=== PATIENT | male | born 1955 | race Caucasian/White ===

== ENCOUNTER 2018-09-11 16:51 | Inpatient (IN) | payer MEDICARE, MEDICAID, SELFPAY ==
[2018-09-11] VITALS (74 sets, daily range): BP systolic 103–184; BP diastolic 53–124; PULSE 82–181; RESP 14–34; TEMP 36.3–37; O2SAT 91–98
--- NOTE | 2018-09-11 17:23 | DI.RAD_ITS ---
SYMPTOM/DIAGNOSIS: COUGH, FEVER FRONTAL AND LATERAL PROJECTION OF CHEST: There are emphysematous changes in the lungs. There is no evidence of an infiltrate or mass, or pleural effusion. The heart is not enlarged. The appearance of the hilar vasculature raises the possibility of pulmonary arterial hypertension. Note is also made of multiple healed right rib fractures. 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 Old healed left rib fractures are identified as well. SUMMARY: COPD, multiple old rib fractures. No acute abnormality seen.
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
[2018-09-11 17:53] LABS: Abs Immature Grans 0.01 k/cumm (0.0-0.09); Absolute Lymphocyte Count 1.35 k/cumm (1.2-3.4); Absolute Monocyte Count 0.75 k/cumm (0.11-0.7); Absolute Neutrophil Count 4.92 k/cumm (1.2-6.7); HCT 41.7 % (40.0-50.0); HGB 14.4 g/dL (13.5-17.5); Immature Grans % 0.1; Lymphocytes % 19.2; Mean Corp. HGB Concentration 34.5 g/dL (32.0-36.0); Mean Corpuscular Hemoglobin 28.6 pg (27.0-33.0); Mean Corpuscular Volume 82.9 fL (80-95); Mean Platelet Volume 10.2 fL (8.0-11.0); Monocytes % 10.7; Platelet Count 259 x1000/uL (130-400); RBC 5.03 m/cumm (4.50-6.00); RBC Distribution Width 13.5 % (11.8-14.1); White Blood Cell Count 7.03 k/cumm (4.4-10.8)
[2018-09-11] MEDS: Albuterol/Ipratropium 3 ML UPD VIAL UPD (17:54)
[2018-09-11] MEDS: Lactated Ringers 1,000 ML 1000 ML IV (17:54)
[2018-09-11 17:59] LABS: Lactate 2.4 mmol/L (0.6-1.4)
[2018-09-11 18:12] LABS: ALT 39 U/L (12-78); AST 171 U/L (15-37); Albumin 3.4 g/dL (3.4-5.0); Alkaline Phosphatase 94 U/L (46-116); Anion Gap 11.9 mmol/L (3-11); BUN 16 mg/dL (7-18); Bilirubin, Total 0.5 mg/dL (0.2-1.0); CO2 27.1 mmol/L (21.0-32.0); CREATININE 0.82 mg/dL (0.70-1.30); Calcium 8.3 mg/dL (8.5-10.1); Chloride 80 mmol/L (98-107); Glucose 190 mg/dL (70-100); Potassium 3.6 mmol/L (3.5-5.1); Total Protein 8.7 g/dL (6.4-8.2)
[2018-09-11 18:14] LABS: Sodium 119 mmol/L (136-145)
--- NOTE | 2018-09-11 18:25 | NUR.NOTE ---
Nursing Note: Pt awake, alert. HR tachy, EKG obtained. labs drawn. flu swab sent. LS coarse throughout. RR 20's-30. reports fevers at home, afebrile in ER. Off unit to XR at this time, will continue to monitor.
[2018-09-11] MEDS: Normal Saline 1,000 ML 150 ML IV (18:47)
[2018-09-11] MEDS: Oseltamivir 75 MG CAP PO (18:57)
--- NOTE | 2018-09-11 19:04 | DI.VRAD_ITS ---
EXAM: XR Chest, 2 Views EXAM DATE/TIME: 09/11/2018 5:25 PM CLINICAL HISTORY: 63 years old, male; Pain; Other: Cough fever TECHNIQUE: XR of the chest, 2 views. COMPARISON: No relevant prior studies available. FINDINGS: The cardiomediastinal silhouette and pulmonary vasculature are within normal limits. The lungs are clear. Lung volumes are increased consistent with COPD. IMPRESSION: COPD. Dictated and Authenticated by: Bala Arriaga MD. Ordering:LEONARDO Noble MD
[2018-09-11 19:33] LABS: Troponin I 0.67 ng/mL (0.00-0.06)
[2018-09-11] MEDS: Aspirin 81 MG CHEW 162 MG PO (20:06)
[2018-09-11] MEDS: methylPREDNISolone SUCC 125 MG VIAL IVP (20:06)
[2018-09-11 21:21] LABS: Troponin I 1.09 ng/mL (0.00-0.06)
[2018-09-11] MEDS: Clopidogrel 300 MG TAB PO (22:12)
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
[2018-09-12] VITALS (70 sets, daily range): BP systolic 84–148; BP diastolic 49–120; PULSE 56–161; RESP 4–30; TEMP 35.7–37; O2SAT 90–98
[2018-09-12] MEDS: Metoprolol 50 MG TAB PO ×4 (00:20→18:48)
[2018-09-12] MEDS: Oseltamivir 75 MG CAP PO ×3 (00:28→20:44)
[2018-09-12] MEDS: Normal Saline 1,000 ML 150 ML IV (00:44)
[2018-09-12 00:52] LABS: Troponin I 0.98 ng/mL (0.00-0.06)
[2018-09-12] MEDS: Acetaminophen 325 MG TAB PO (01:01)
[2018-09-12 02:55] LABS: PTT Activated 65.7 sec (21.0-31.4)
[2018-09-12] MEDS: Albuterol/Ipratropium 3 ML UPD VIAL UPD (07:20)
[2018-09-12 07:22] LABS: Absolute Lymphocyte Count 1.64 k/cumm (1.2-3.4); Absolute Monocyte Count 0.39 k/cumm (0.11-0.7); Absolute Neutrophil Count 4.24 k/cumm (1.2-6.7); HCT 39.1 % (40.0-50.0); HGB 13.6 g/dL (13.5-17.5); Lymphocytes % 26.2; Mean Corp. HGB Concentration 34.8 g/dL (32.0-36.0); Mean Corpuscular Hemoglobin 28.7 pg (27.0-33.0); Mean Corpuscular Volume 82.5 fL (80-95); Mean Platelet Volume 10.2 fL (8.0-11.0); Monocytes % 6.2; Neutrophils % 67.6; Platelet Count 232 x1000/uL (130-400); RBC 4.74 m/cumm (4.50-6.00); RBC Distribution Width 13.3 % (11.8-14.1); White Blood Cell Count 6.27 k/cumm (4.4-10.8)
[2018-09-12 07:34] LABS: ALT 36 U/L (12-78); AST 172 U/L (15-37); Albumin 2.8 g/dL (3.4-5.0); Alkaline Phosphatase 76 U/L (46-116); BUN 17 mg/dL (7-18); Bilirubin, Total 0.4 mg/dL (0.2-1.0); CREATININE 0.78 mg/dL (0.70-1.30); Calcium 7.5 mg/dL (8.5-10.1); Chloride 87 mmol/L (98-107); Glucose 199 mg/dL (70-100); Magnesium 1.2 mg/dL (1.8-2.4); Potassium 3.8 mmol/L (3.5-5.1); Total Protein 7.3 g/dL (6.4-8.2)
[2018-09-12 07:37] LABS: Sodium 124 mmol/L (136-145)
[2018-09-12 08:12] LABS: Cholesterol 96 mg/dL (50-200); HDL Cholesterol 38 mg/dL (40-60); LDL CHOLESTEROL 49 mg/dL (<100); Triglyceride 64 mg/dL (30-150)
[2018-09-12 08:25] LABS: Lactate-non-spesis 1.5 mmol/L (0.6-1.4)
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
[2018-09-12 08:48] LABS: PTT Activated 50.9 sec (21.0-31.4)
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
--- NOTE | 2018-09-12 09:00 | MERGE_ITS ---
*[facility]* *[facility]* [address] [place] [address] Date of study: 09/12/2018 Transthoracic Echocardiography M-mode, complete 2D, complete spectral Doppler, and color Doppler *STUDY CONCLUSIONS* Summary: 1. Left ventricle: The cavity size was normal. Systolic function was normal. The estimated ejection fraction was 55-60%. Diastolic parameters were normal for age. There was no evidence of elevated ventricular filling pressure by Doppler parameters. 2. Mitral valve: There was mild regurgitation. 3. Right ventricle: The cavity size was normal. Wall thickness was normal. Systolic function was normal. 4. Atrial septum: No defect or patent foramen ovale was identified. 5. Pulmonary arteries: Pulmonary systolic pressure was >= 15mm Hg. 6. Inferior vena cava: Poorly visualized. *PATIENT PRESENTATION* Height: 188cm ((74in) ) S/D Pressure: 128 / 68 Weight: 72.6kg ((159.7lb) ) BSA: 1.94m^2 Test start time: 09:10 AM. Test stop time: 10:10 AM. Manjinder Johnson Michael R PERFORMING [facility] CONSULTING Stephen Torres EDUCATION PROGRAM COORDINATOR RT Jose Raul (R)(CT), [facility] PERFORMING Md Kristyn George *PROCEDURE DATA* Procedure information: The patient was identified by two identifiers. This study was interpreted by [facility]. Pertinent images and digital data are archived for permanent storage and are available for subsequent review. No prior study was available for comparison. Study status: Routine. Transthoracic echocardiography. M-mode, complete 2D, complete spectral Doppler, and color Doppler. A Transthoracic Echocardiogram was performed. Scanning was performed from the parasternal, apical, subcostal, and suprasternal notch acoustic windows. Images were obtained using an [id number] cardiac ultrasound machine. Image quality was adequate. Study completion: The patient tolerated the procedure well. *CARDIAC ANATOMY* Left ventricle: The cavity size was normal. Systolic function was normal. The estimated ejection fraction was 55-60%. The tissue Doppler parameters were abnormal. Diastolic parameters were normal for age. There was no evidence of elevated ventricular filling pressure by Doppler parameters. Aortic valve: Trileaflet. Doppler: There was no stenosis. There was no regurgitation. VTI ratio of LVOT to aortic valve: 0.65. Valve area (VTI): 2.1cm^2. Indexed valve area (VTI): 1.1cm^2/m^2. Peak velocity ratio of LVOT to aortic valve: 0.62. Valve area (Vmax): 2cm^2. Indexed valve area (Vmax): 1cm^2/m^2. Mean velocity ratio of LVOT to aortic valve: 0.6. Valve area (Vmean): 1.9cm^2. Indexed valve area (Vmean): 1cm^2/m^2. Mean gradient (S): 1.3mm Hg. Peak gradient (S): 2.1mm Hg. Aorta: Aortic root: The aortic root was normal in size. Mitral valve: Doppler: There was no evidence for stenosis. There was mild regurgitation. Valve area by pressure half-time: 4cm^2. Indexed valve area by pressure half-time: 2cm^2/m^2. Left atrium: The atrium was normal in size. Atrial septum: No defect or patent foramen ovale was identified. Right ventricle: The cavity size was normal. Wall thickness was normal. Systolic function was normal. Pulmonic valve: Doppler: There was no evidence for stenosis. There was no significant regurgitation. Tricuspid valve: Doppler: There was mild regurgitation. Pulmonary artery: Poorly visualized. Pulmonary systolic pressure was >= 15mm Hg. Right atrium: The atrium was normal in size. Pericardium: There was no pericardial effusion. Systemic veins: Inferior vena cava: Poorly visualized. Baseline ECG: Normal sinus rhythm. Measurements Left ventricle Value Reference LV ID, ED, PLAX 4.2 cm 3.5 - 6.0 LV ID, ES, PLAX 3.2 cm 2.1 - 4.0 LV end-diastolic volume, 1-p A2C 60 ml LV ejection fraction, 1-p A2C 48 % LV end-diastolic volume, 1-p A4C 59 ml LV ejection fraction, 1-p A4C 57 % LV e', lateral 0.06 m/sec LV E/e', lateral 7 LV e', medial 0.064 m/sec LV E/e', medial 7 LV e', average 0.062 m/sec LV E/e', average 7 LVOT Value Reference LVOT ID, A-P 2.0 cm LVOT area 3.3 cm^2 LVOT peak velocity, S 0.45 m/sec LVOT mean velocity, S 0.33 m/sec LVOT VTI, S 10.4 cm LVOT peak gradient, S 0.8 mm Hg LVOT mean gradient, S 0.5 mm Hg Stroke volume (SV), LVOT DP 34 ml Stroke index (SV/bsa), LVOT DP 18 ml/m^2 Aortic valve Value Reference Aortic valve peak velocity, S 0.7 m/sec Aortic valve mean velocity, S 0.56 m/sec Aortic valve VTI, S 16.0 cm Aortic mean gradient, S 1.3 mm Hg Aortic peak gradient, S 2.1 mm Hg VTI ratio, LVOT/AV 0.65 Aortic valve area, VTI 2.1 cm^2 Velocity ratio, peak, LVOT/AV 0.62 Aortic valve area, peak velocity 2 cm^2 Velocity ratio, mean, LVOT/AV 0.6 Aortic valve area, mean velocity 1.9 cm^2 Aortic valve area/bsa, mean velocity 1 cm^2/m^2 Aorta Value Reference Aortic root ID, ED 3.0 cm Left atrium Value Reference LA ID, A-P, ES 3.7 cm LA ID/bsa, A-P 1.9 cm/m^2 <=2.2 LA area, ES, A4C 14.4 cm^2 8.8 - 23.4 LA volume/bsa, ES, 1-p A4C 20 ml/m^2 LA/aortic root ratio 1.23 Mitral valve Value Reference Mitral E-wave peak velocity 0.44 m/sec Mitral A-wave peak velocity 0.58 m/sec Mitral deceleration time 192 ms 150 - 230 Mitral pressure half-time 56 ms Mitral E/A ratio, peak 0.76 Mitral valve area, PHT, DP 4 cm^2 Tricuspid valve Value Reference Tricuspid regurg peak velocity 2 m/sec Tricuspid peak RV-RA gradient 15.5 mm Hg Right atrium Value Reference RA area, ES, A4C 16.4 cm^2 8.3 - 19.5 Legend: (L) and (H) sonja values outside specified reference range. I have personally reviewed the images and have reviewed and edited the reported findings. Electronically signed by Manjinder Rosas MD 09/12/2018 19:16
[2018-09-12] MEDS: Normal Saline Flush 10 ML SYR IVP (10:05)
[2018-09-12] MEDS: Clopidogrel 75 MG TAB PO (10:06)
[2018-09-12] MEDS: Thiamine 100 MG TAB PO (10:06)
[2018-09-12] MEDS: Aspirin 81 MG CHEW PO (10:07)
[2018-09-12] MEDS: Gabapentin 100 MG CAP 200 MG PO ×3 (10:33→20:44)
[2018-09-12] MEDS: Timolol 0.5% 5 ML BTL OP ×2 (10:34→22:42)
[2018-09-12 10:58] LABS: FREE T4 1.19 ng/dL (0.76-1.46); TSH 1.09 uIU/mL (0.358-3.74)
[2018-09-12] MEDS: MAGNESIUM SULFATE 4 GM/100 ML BAG IVPB (11:04)
[2018-09-12] MEDS: SODIUM CHLORIDE 0.45% 1,000 ML 75 ML IV (11:06)
[2018-09-12 12:25] LABS: Anion Gap 9.4 mmol/L (3-11); BUN 19 mg/dL (7-18); CO2 28.6 mmol/L (21.0-32.0); CREATININE 1.04 mg/dL (0.70-1.30); Calcium 7.8 mg/dL (8.5-10.1); Chloride 86 mmol/L (98-107); Glucose 192 mg/dL (70-100); Potassium 3.7 mmol/L (3.5-5.1)
[2018-09-12 12:27] LABS: Sodium 124 mmol/L (136-145)
[2018-09-12 13:07] LABS: Bilirubin Negative (Negative); Blood Moderate (Negative); Clarity Clear; Glucose Negative (Negative); Ketones Negative (Negative); Leukocyte Esterase Negative (Negative); Nitrite Negative (Negative); Urobilinogen 0.2 EU/dL (Up TO 0.2); pH 6.5 (5-8)
[2018-09-12 13:21] LABS: WBC 0-2 HPF (0-5)
[2018-09-12 13:22] LABS: Bacteria Rare HPF (Negative); C & S Indicated? No; Casts Negative LPF (Negative); Crystals Negative HPF (Negative); Epithelial Cells Negative HPF (Negative); Mucus Negative (Negative); Other Cells Negative (Negative)
--- NOTE | 2018-09-12 16:43 | W.PM.PROGNOT ---
Date of Service Date of service: 09/12/18 Time of Service: 12:00 Assessment and Plan (1) Elevated troponin: Current visit: Yes Status: Acute Ddx: NSTEMI, carditis due to influenza A infection. EKG with nonspecific ST changes, echo results will be available shortly. Troponin no longer rising. At this point, would continue heparin gtt due to the degree of elevated troponin and re-discuss with cardiology at [facility] [facility]. It is likely the patient will require a cardiac cath. (2) Acute coronary syndrome: Current visit: Yes Status: Acute as above (3) Rapid atrial fibrillation: Current visit: Yes Status: Resolved Resolved. Continue current dose of beta blockers. Diltiazem increased to 60 mg Q 8hrs. (4) Influenza A: Current visit: Yes Status: Acute Continue tamiflu (5) Tobacco abuse: Current visit: Yes Status: Chronic Counselled on quitting. (6) Encephalopathy chronic: Current visit: Yes Status: Chronic Wernicke's encephalopathy is suspected. Continue thiamine (7) Hyponatremia: Current visit: Yes Status: Acute Improving. Repeat BMP at 1800. On 09/18 NS as the sodium starting to go up faster than I would have liked. (8) Hypomagnesemia: Current visit: Yes Status: Acute Replete, monitor on tele. (9) Discharge planning issues: Current visit: Yes Status: Acute Transfer to [facility] expected - awaiting echocardiogram. Subjective Interval history since last seen: Denies dizziness, chest pain, shortness of breath, nasal congestion, sore throat, nausea, vomiting, palpitations. Has remained in NSR with occasional short runs of Sinus tach. Exam Narrative Exam Narrative: General: Middle aged male, confused, appears much older than his stated age HEENT: EOMI, MMM Heart: RRR, no m/r/g Lungs: quiet rhonchi bilaterally GI: abdomen soft, nontender, nondistended Extremities: no e/c/c BLE's Objective Objective Clinical Data: Abnormal lab results 09/11/18 09/11/18 09/11/18 Range/Units 17:30 17:30 17:30 Hct (40.0-50.0) % Absolute Monocytes 0.75 H (0.11-0.7) k/cumm APTT (21.0-31.4) sec Sodium 119 L* (136-145) mmol/L Chloride 80 L (98-107) mmol/L Anion Gap 11.9 H (3-11) mmol/L BUN (7-18) mg/dL Glucose 190 H (70-100) mg/dL Lactate 2.4 H* (0.6-1.4) mmol/L Calcium 8.3 L (8.5-10.1) mg/dL Magnesium (1.8-2.4) mg/dL AST 171 H (15-37) U/L Troponin I 0.67 H (0.00-0.06) ng/mL Total Protein 8.7 H (6.4-8.2) g/dL Albumin (3.4-5.0) g/dL HDL Cholesterol (40-60) mg/dL Urine Protein (Negative) mg/dL Urine Blood (Negative) Urine RBC (0-2) 09/11/18 09/12/18 09/12/18 Range/Units 20:48 00:30 02:33 Hct (40.0-50.0) % Absolute Monocytes (0.11-0.7) k/cumm APTT 65.7 H (21.0-31.4) sec Sodium (136-145) mmol/L Chloride (98-107) mmol/L Anion Gap (3-11) mmol/L BUN (7-18) mg/dL Glucose (70-100) mg/dL Lactate (0.6-1.4) mmol/L Calcium (8.5-10.1) mg/dL Magnesium (1.8-2.4) mg/dL AST (15-37) U/L Troponin I 1.09 H 0.98 H (0.00-0.06) ng/mL Total Protein (6.4-8.2) g/dL Albumin (3.4-5.0) g/dL HDL Cholesterol (40-60) mg/dL Urine Protein (Negative) mg/dL Urine Blood (Negative) Urine RBC (0-2) 09/12/18 09/12/18 09/12/18 Range/Units 06:45 06:45 08:15 Hct 39.1 L (40.0-50.0) % Absolute Monocytes (0.11-0.7) k/cumm APTT 50.9 H D (21.0-31.4) sec Sodium 124 L* (136-145) mmol/L Chloride 87 L (98-107) mmol/L Anion Gap 13.0 H (3-11) mmol/L BUN (7-18) mg/dL Glucose 199 H (70-100) mg/dL Lactate (0.6-1.4) mmol/L Calcium 7.5 L (8.5-10.1) mg/dL Magnesium 1.2 L (1.8-2.4) mg/dL AST 172 H (15-37) U/L Troponin I (0.00-0.06) ng/mL Total Protein (6.4-8.2) g/dL Albumin 2.8 L (3.4-5.0) g/dL HDL Cholesterol 38 L (40-60) mg/dL Urine Protein (Negative) mg/dL Urine Blood (Negative) Urine RBC (0-2) 09/12/18 09/12/18 09/12/18 Range/Units 08:15 11:58 12:05 Hct (40.0-50.0) % Absolute Monocytes (0.11-0.7) k/cumm APTT (21.0-31.4) sec Sodium 124 L* (136-145) mmol/L Chloride 86 L (98-107) mmol/L Anion Gap (3-11) mmol/L BUN 19 H (7-18) mg/dL Glucose 192 H (70-100) mg/dL Lactate 1.5 H (0.6-1.4) mmol/L Calcium 7.8 L (8.5-10.1) mg/dL Magnesium (1.8-2.4) mg/dL AST (15-37) U/L Troponin I (0.00-0.06) ng/mL Total Protein (6.4-8.2) g/dL Albumin (3.4-5.0) g/dL HDL Cholesterol (40-60) mg/dL Urine Protein 30 H (Negative) mg/dL Urine Blood Moderate H (Negative) Urine RBC 5-10 H (0-2) Vital Signs Temperature 36.5 C 09/12/18 12:05 Temperature Source Temporal Artery Scan 09/12/18 12:05 Pulse 89 09/12/18 13:04 Pulse 73 09/12/18 13:04 Respiratory Rate 22 09/12/18 13:04 Respiratory Effort Non-Labored 09/12/18 12:05 Respiratory Depth Normal 09/12/18 12:05 Respiratory Pattern Normal 09/12/18 12:05 Blood Pressure 114/52 L 09/12/18 13:04 Blood Pressure Mean 66 09/12/18 13:04 Pulse Oximetry 94 L 09/12/18 08:45 Oxygen Delivery Method Room Air 09/12/18 08:45 Oxygen Flow Rate 0 09/12/18 08:45 Pain Level 0 09/12/18 12:05 Intake & Output 09/11/18 09/12/18 09/12/18 23:59 11:59 23:59 Intake Total 1016.008 / 1516.008 500 / 1516.008 Output Total 1200 / 1300 675 / 775 100 / 775 Balance 810..25 341.008 / 741.008 400 / 741.008 Weight 72.575 kg 69.1 kg Intake: IV 266.008 / 766.008 500 / 766.008 Oral 750 / 750 Output: Urine 1200 / 1300 675 / 775 100 / 775 Other: Urine Color Light Darcy Light Darcy Urine Appearance Clear Clear Urine Odor Normal Normal Voiding Methods Urinal Urinal # Voids 2 Laboratory Results WBC 6.27 k/cumm (4.4-10.8) 09/12/18 06:45 RBC 4.74 m/cumm (4.50-6.00) 09/12/18 06:45 Hgb 13.6 g/dL (13.5-17.5) 09/12/18 06:45 Hct 39.1 % (40.0-50.0) L 09/12/18 06:45 MCV 82.5 fL (80-95) 09/12/18 06:45 MCH 28.7 pg (27.0-33.0) 09/12/18 06:45 MCHC 34.8 g/dL (32.0-36.0) 09/12/18 06:45 RDW 13.3 % (11.8-14.1) 09/12/18 06:45 Plt Count 232 x1000/uL (130-400) 09/12/18 06:45 MPV 10.2 fL (8.0-11.0) 09/12/18 06:45 Immature Gran % 0.0 09/12/18 06:45 Neutrophils % 67.6 09/12/18 06:45 Lymphocytes % 26.2 09/12/18 06:45 Monocytes % 6.2 09/12/18 06:45 Eosinophils % 0.0 09/12/18 06:45 Basophils % 0.0 09/12/18 06:45 Absolute Neutrophils 4.24 k/cumm (1.2-6.7) 09/12/18 06:45 Absolute Lymphocytes 1.64 k/cumm (1.2-3.4) 09/12/18 06:45 Absolute Monocytes 0.39 k/cumm (0.11-0.7) 09/12/18 06:45 Absolute Eosinophils 0.00 k/cumm (0.0-0.7) 09/12/18 06:45 Absolute Basophils 0.00 k/cumm (0.0-0.2) 09/12/18 06:45 APTT 50.9 sec (21.0-31.4) H D 09/12/18 08:15 Sodium 124 mmol/L (136-145) L* 09/12/18 12:05 Potassium 3.7 mmol/L (3.5-5.1) 09/12/18 12:05 Chloride 86 mmol/L (98-107) L 09/12/18 12:05 Carbon Dioxide 28.6 mmol/L (21.0-32.0) 09/12/18 12:05 Anion Gap 9.4 mmol/L (3-11) 09/12/18 12:05 BUN 19 mg/dL (7-18) H 09/12/18 12:05 Creatinine 1.04 mg/dL (0.70-1.30) 09/12/18 12:05 Estimated GFR/1.73 m2 >= 60.00 (mL/min/1.73m2) 09/12/18 12:05 Glucose 192 mg/dL (70-100) H 09/12/18 12:05 Lactate 1.5 mmol/L (0.6-1.4) H 09/12/18 08:15 Calcium 7.8 mg/dL (8.5-10.1) L 09/12/18 12:05 Magnesium 1.2 mg/dL (1.8-2.4) L 09/12/18 06:45 Total Bilirubin 0.4 mg/dL (0.2-1.0) 09/12/18 06:45 AST 172 U/L (15-37) H 09/12/18 06:45 ALT 36 U/L (12-78) 09/12/18 06:45 Alkaline Phosphatase 76 U/L (46-116) 09/12/18 06:45 Troponin I 0.98 ng/mL (0.00-0.06) H 09/12/18 00:30 Total Protein 7.3 g/dL (6.4-8.2) 09/12/18 06:45 Albumin 2.8 g/dL (3.4-5.0) L 09/12/18 06:45 Triglycerides 64 mg/dL (30-150) 09/12/18 06:45 Total Cholesterol 96 mg/dL (50-200) 09/12/18 06:45 LDL Cholesterol Direct 49 mg/dL (<100) 09/12/18 06:45 HDL Cholesterol 38 mg/dL (40-60) L 09/12/18 06:45 TSH 1.09 uIU/mL (0.358-3.74) 09/12/18 06:45 Free T4 1.19 ng/dL (0.76-1.46) 09/12/18 06:45 Urine Color Yellow (Yellow) 09/12/18 11:58 Urine Clarity Clear 09/12/18 11:58 Urine pH 6.5 (5-8) 09/12/18 11:58 Ur Specific [place] 1.010 (1.005-1.025) 09/12/18 11:58 Urine Protein 30 mg/dL (Negative) H 09/12/18 11:58 Urine Ketones Negative mg/dL (Negative) 09/12/18 11:58 Urine Blood Moderate (Negative) H 09/12/18 11:58 Urine Nitrite Negative (Negative) 09/12/18 11:58 Urine Bilirubin Negative (Negative) 09/12/18 11:58 Urine Urobilinogen 0.2 EU/dL (Up TO 0.2) 09/12/18 11:58 Ur Leukocyte Esterase Negative (Negative) 09/12/18 11:58 Urine RBC 5-10 (0-2) H 09/12/18 11:58 Urine WBC 0-2 HPF (0-5) 09/12/18 11:58 Ur Epithelial Cells Negative HPF (Negative) 09/12/18 11:58 Urine Crystals Negative HPF (Negative) 09/12/18 11:58 Urine Bacteria Rare HPF (Negative) 09/12/18 11:58 Urine Casts Negative LPF (Negative) 09/12/18 11:58 Urine Mucus Negative (Negative) 09/12/18 11:58 Urine Other Negative (Negative) 09/12/18 11:58 Ur Culture Indicated? No 09/12/18 11:58 Urine Glucose Negative mg/dL (Negative) 09/12/18 11:58 Echo done, read pending - Discussed with Dr Rosas, who will be doing the read.
--- NOTE | 2018-09-12 17:07 | PHARADMIT ---
Addendum entered by Florentino Slater III 09/20/18 11:08: Patient has completed course of Tamiflu , is on a Prednisone taper, and ready to be discharged to a long term (later today ?) VS-OK WBC-21.69 (chronic) other Labs -WNL Wgt-66.3kg Last BM 09/18 Awaiting discharge orders. Original Note: Addendum entered by Rae Coley 09/19/18 15:01: Pharmacy Note Subjective WBC increase may be due to steroid use Objective WBC 18.99, Glucose 308, H/H stable Assessment prednisone now 20mg daily, insulin aspart SS started with meals, Plan Continue to monitor vitals, labs, FS, med changes Original Note: Addendum entered by Constanza Moore 09/18/18 13:29: Pharmacy Note Subjective no behavior problems overnight, 1 more day of tele then will change to med/surg Objective BP 128/59 other vitals okay; Mag 1.6; WBC 18.39 H/H 9.6/30.1 BG 200 Assessment WBC is way up again -- another chest xray ordered HR is well controlled with diltiazem cd and metoprolol xl weaning prednisone - 40mg daily Plan Continue to monitor vitals, labs, med changes Original Note: Addendum entered by Angela Hirsch 09/17/18 11:36: Pharmacy Note Subjective pt lethargic and had poor urine output overnight per nursing report Objective HR-57 other VS okay mag-1.7 h/h-10.1/31.3(up) BG-227 Assessment quetiapine dose increased yesterday then discontinued today metoprolol changed from IR to CR once daily vanco started then discontinued (contaminated blood culture) stool occult blood pending prednisone started 40 mg bid yesterday PO mag ox given X1 today in addition to scheduled Slo-mag enoxaparin changed to apixaban Plan continue to watch VS, labs and for med changes Original Note: Addendum entered by Stacie Menchaca 09/15/18 13:21: Pharmacy Note Subjective Objective BP 109/49, HR 68, Afebrile, weight 63.2 (down) K+ 3.5, Mag 1.7 Assessment Diltiazem IR changed to CD Lasix decreased from IV BID to QD Magox 400mg 2x today in addition to Slo-Mag (per MD)...timed around Gabapentin administration for optimal absorption Potassium po 2x today Metoprolol tartrate Q6h to Q12h Last dose of Tamiflu will be tonight (started 09/11/18 x 10 doses) Chest xray negative per MD Urine negative per MD refused Lovenox this morning (ordered 70mg Q12h)...MD aware Plan Repeat blood cultures drawn 09/14/18 pending CM working w/caregiver Original Note: Addendum entered by Stacie Menchaca 09/14/18 13:07: Pharmacy Note Subjective Behavior issues, physical aggression towards staff, refuses care, not eating, refuses labs, is taking most meds, Hx of Wernicke's Objective Temp 38.3 this morning, BP good, labs not obtainable blood no growth x48h Assessment Tamiflu is day#3-4 (started 09/11 in the evening) CM mentions needing someone from family/caregiver to sign consents since patient not able to regarding cardiac decision making w/NSTEMI Lovenox 70mg Q12h is for coverage since pt refusing heparin infusion still on Lasix 20mg IVP BID Lorazepam/Seroquel 1x orders Plan Discussion of possible transfer closer to primary care and [facility] Urinalysis uncollected, pt wearing incontinent brief Original Note: Addendum entered by Florentino Slater III 09/13/18 12:32: Pharmacy Note Subjective Patient had difficult night, disconnected his IV, pulled off tele pads. MD suspects he may have Wernicke's encephalopathy. A-fib controlled by meds. Objective HR-100 Na-125 K+3.9 Mag-2.1 Troponin-1.09^0.98^0.28 H&H- 10.1/29.5 WBC-8.88 Wgt- 67.5 kg BM 09/12 Assessment On Diltiazem, Lopressor & Lasix. On Tamiflu Plan Awaiting ECHO results, may need transfer to [facility] for cardiac cath Original Note: Admission Pharmacy Clinical Review influenza, rapid afib, elevated troponins Code Status Full Code Current Weight 69.1 kg Renally Cleared and Narrow Therapeutic Index Meds Crcl ~69.00 mL/min current meds okay QTc Value / Action Taken QTc 449 BP Control, Fever BP 114/52 afebrile Electrolytes reviewed Na 124(up) mag 1.2 DVT Prophylaxis on heparin drip Opiate Usage / Scheduled Bowel Regimen Ordered no/prn Plt/SCr for Heparin / Enoxaparin plt 232 SCr 1.04 INR for Warfarin n/a H/H stable, WBC/Bands h/h 13.6/39.1 wbc 6.27 Antibiotic appropriateness n/a Cultures and Sensitivities blood cultures pending rapid flu positive for flu A antigen Surgical ABX d/c within 24 hr n/a DM control / Insulin Dosing BG 192 none Heart Failure (Check EF%) (RADHA's, B-Block, Diuretics) diltiazem, metoprolol IV to PO Switch n/a Home Meds Reviewed -separate administration of magnesium from gabapentin and bisacodyl -atorvastatin may increase the serum concentration of diltiazem and diltiazem may increase the serum concentration of atorvastatin. monitor for adverse reactions/toxicity Home Meds Not Ordered all home meds ordered Comments transfer to [facility] expected, awaiting echo results per progress note
[2018-09-12 17:13] LABS: NT-proBNP 3909 pg/mL
--- NOTE | 2018-09-12 18:21 | NUR.NOTE ---
Patient's records to be gotten by Cecelia Verde CM from the following: [facility] (PCP[facility] , [facility] .Nursing Note:
[2018-09-12 18:30] LABS: BUN 24 mg/dL (7-18); CREATININE 0.96 mg/dL (0.70-1.30); Chloride 87 mmol/L (98-107); Glucose 189 mg/dL (70-100); Potassium 3.9 mmol/L (3.5-5.1)
[2018-09-12 19:00] LABS: Sodium 124 mmol/L (136-145)
[2018-09-12 19:47] LABS: Magnesium 2.5 mg/dL (1.8-2.4)
[2018-09-12] MEDS: Metoprolol 50 MG TAB 25 MG PO (20:44)
[2018-09-12] MEDS: Atorvastatin 20 MG TAB PO (20:44)
[2018-09-12] MEDS: Nicotine 21 MG/24 HR PATCH TD (20:45)
[2018-09-12] MEDS: Normal Saline 1,000 ML 75 ML IV (20:54)
[2018-09-12] MEDS: Magnesium Chloride 64 MG TABCR PO (23:43)
--- NOTE | 2018-09-12 23:46 | NUR.NOTE ---
09/12/18 23:15 pt disconnected his maintenance IV fluid at the site hub. Midline catheter is still in place with 0cm catheter exposed. This RN made several requests to restart pt IV fluids. Pt refuses, In the morning we can do it. Pt agrees to drink a can of best christel at this time. Nursing Note:
[2018-09-13] VITALS (44 sets, daily range): BP systolic 90–143; BP diastolic 38–93; PULSE 60–146; RESP 12–24; TEMP 36.5–37.3; O2SAT 92–97
[2018-09-13] MEDS: Metoprolol 50 MG TAB 25 MG PO ×3 (02:18→14:49)
--- NOTE | 2018-09-13 04:19 | NUR.NOTE ---
09/12/18 21:30 caLL REC'D FROM Pt. caregiver Mary Valerio with instructions that this pt must not be given any potentially addicting drug due to his history of drug addition. Nursing Note:
[2018-09-13 07:54] LABS: Abs Immature Grans 0.02 k/cumm (0.0-0.09); Absolute Lymphocyte Count 1.41 k/cumm (1.2-3.4); Absolute Monocyte Count 0.91 k/cumm (0.11-0.7); Absolute Neutrophil Count 6.54 k/cumm (1.2-6.7); HCT 29.5 % (40.0-50.0); HGB 10.1 g/dL (13.5-17.5); Immature Grans % 0.2; Lymphocytes % 15.9; Mean Corp. HGB Concentration 34.2 g/dL (32.0-36.0); Mean Corpuscular Hemoglobin 29.1 pg (27.0-33.0); Mean Platelet Volume 10.5 fL (8.0-11.0); Monocytes % 10.2; Neutrophils % 73.7; Platelet Count 216 x1000/uL (130-400); RBC 3.47 m/cumm (4.50-6.00); RBC Distribution Width 13.2 % (11.8-14.1); White Blood Cell Count 8.88 k/cumm (4.4-10.8)
[2018-09-13 07:56] LABS: Anion Gap 6.1 mmol/L (3-11); BUN 31 mg/dL (7-18); CO2 28.9 mmol/L (21.0-32.0); CREATININE 0.96 mg/dL (0.70-1.30); Calcium 7.8 mg/dL (8.5-10.1); Chloride 90 mmol/L (98-107); Glucose 167 mg/dL (70-100); Magnesium 2.1 mg/dL (1.8-2.4); Potassium 3.9 mmol/L (3.5-5.1); Sodium 125 mmol/L (136-145)
[2018-09-13 07:57] LABS: PTT Activated 27.3 sec (21.0-31.4)
[2018-09-13 08:20] LABS: Troponin I 0.28 ng/mL (0.00-0.06)
--- NOTE | 2018-09-13 08:30 | PDOC.CMPRO ---
Care Management Progress Note S/O: Awaiting ECHO results, per MD, iT will likely require cardiac cathertization. He continues to be treated with lopressor and diltiazem. [facility] consult for next steps. CM provided updated contact information to ACCESS. CM contacted [facility] to request clinical information which was later faxed and provided to ICU by this screen writer. CM also requested records from Ti's PCP; Anselmo Hernandes in [place], [place] P#[phone], and spoke with Yadira who encouraged this screen writer to leave a message on RN line; CM left message requesting RN to RN contact (providing ICU number) or faxed records, Yadira reported [facility] is open tomorrow as well. CM spoke with Ilan; [facility] Quality/Risk regarding transfer consent questions posed by Dr. Donnelly. Dr. Donnelly requested process information if Ti requires transfer and is unable to consent-who would be person of contact. CM spoke with [employer] who reported Ti is his own guardian and deferred question to Kamille Duff; YOSELIN. This screen writer left VM for Kamille requesting response and providing pager information for direct contact as soon as Kamille becomes available. [employer], Mary Valerio (caregiver) (P#[phone]) and [employer] Kamille Duff P#[phone], Emergency Office number: [phone]. A: 63 year old male admitted to [facility] for Influenza/Rapid AFIB, elevated troponins (no longer rising) P: Ti will continue to be monitored and will return home with his caregiver with scheduled outpatient follow up [id number] to tertiary per [facility] consult. Transport determined by disposition. CM will continue to support Ti and file needed information shall he require treatment at [facility] in the future.
--- NOTE | 2018-09-13 08:34 | CMPROGNOTE_ITS ---
Care Management Progress Note S/O: Awaiting ECHO results, per MD, Ti will likely require cardiac cathertization. He continues to be treated with lopressor and diltiazem. [facility] consult for next steps. CM provided updated contact information to ACCESS. CM contacted to request clinical information which was later faxed and provided to ICU by this check writer salesperson. CM also requested records from Ti's PCP; Anselmo Hernandes in [place], [place] P#[phone], and spoke with Yadira who encouraged this check writer salesperson to leave a message on RN line; CM left message requesting RN to RN contact (providing ICU number) or faxed records, Yadira reported [facility] is open tomorrow as well. CM spoke with Ilan; [facility] Quality/Risk regarding transfer consent questions posed by Dr. Donnelly. Dr. Donnelly requested process information if Ti requires transfer and is unable to consent-who would be person of contact. CM spoke with [email or web address] who reported Ti is his own guardian and deferred question to Kamille Duff; YOSELIN. This check writer salesperson left VM for Kamille requesting response and providing pager information for direct contact as soon as Kamille becomes available. [employer], Mary Valerio (caregiver) (P#[phone]) and [employer] Kamille Duff P#[phone], Emergency Office number: [phone]. A: 63 year old male admitted to [facility] for Influenza/Rapid AFIB, elevated troponins (no longer rising) P: Ti will continue to be monitored and will return home with his caregiver with scheduled outpatient follow up [id number] to tertiary per [facility] consult. Transport determined by disposition. CM will continue to support Ti and file needed information shall he require treatment at [facility] in the future.
[2018-09-13] MEDS: Aspirin 81 MG CHEW PO (08:48)
[2018-09-13] MEDS: Gabapentin 100 MG CAP 200 MG PO ×3 (08:49→20:20)
[2018-09-13] MEDS: Oseltamivir 75 MG CAP PO ×2 (08:49→20:21)
[2018-09-13] MEDS: Thiamine 100 MG TAB PO (08:49)
[2018-09-13] MEDS: Timolol 0.5% 5 ML BTL OP ×2 (10:33→20:23)
[2018-09-13] MEDS: Metoprolol 5 MG/5 ML VIAL IVP (10:33)
[2018-09-13] MEDS: Magnesium Chloride 64 MG TABCR PO ×2 (10:39→22:15)
[2018-09-13] MEDS: Furosemide 20 MG/2 ML VIAL IVP ×2 (10:39→17:42)
--- NOTE | 2018-09-13 13:12 | DI.COMBO_ITS ---
SYMPTOM/DIAGNOSIS: ALTERED MENTAL STATUS, ? CVA, A FIB CAROTID ULTRASOUND: A large focus of plaque is seen at the right common carotid bulb. There is velocity elevation in the proximal right internal carotid artery consistent with a moderate degree of stenosis. The left common and internal carotid arteries show mild atherosclerotic plaque. There is mild systolic velocity elevation again consistent with a moderate degree of stenosis. Both vertebral arteries show antegrade flow. IMPRESSION: Moderate bilateral internal carotid artery stenosis of 50-69%. MRA OF [facility] [place]: There is no evidence of an aneurysm or significant stenosis. There is no evidence of occlusion. IMPRESSION: Negative MRA of the [place]. BRAIN MRI: T 2 sagittal, T 1, T 2, FLAIR, diffusion and gradient echo axial sequences were performed. The exam is quite limited by the patient's inability to hold still. There is atrophy and compensatory ventricular enlargement, somewhat disproportionate to the patient's age. There is mildly increased patchy signal in the white matter consistent with mild small vessel disease. No acute infarct, hemorrhage or mass is seen. IMPRESSION: Atrophy and mild white matter changes consistent with small vessel disease. No acute abnormality.
[2018-09-13 13:52] LABS: Sodium, Urine 59 mmol/L
--- NOTE | 2018-09-13 14:50 | DI.VRAD_ITS ---
EXAM: MR Head Without Contrast EXAM DATE/TIME: 09/13/2018 1:14 PM CLINICAL HISTORY: 63 years old, male; Signs and symptoms; Altered mental status/memory loss; Other: AMS, afib, R/O CVA; Additional info: Unable to hold still or follow directions TECHNIQUE: MR of the head without contrast. COMPARISON: HEAD^MRA COW 09/13/2018 12:40 PM FINDINGS: Exam is limited due to motion. Brain: Involutional changes of the brain are present and greater than expected for patient age. Periventricular T2/flair hyperintensities likely reflect chronic microangiopathy. No hemorrhage. No significant white matter disease. No edema. No evidence of restricted diffusion. Ventricles: Normal. No ventriculomegaly. Bones/joints: Unremarkable. Soft tissues: Normal. Sinuses: Normal as visualized. No acute sinusitis. Mastoid air cells: Normal as visualized. No mastoid effusion. Orbits: Unremarkable. IMPRESSION: 1. Exam limited by motion. 2. No acute findings. 3. Greater than expected atrophy of the brain for patient age. Dictated and Authenticated by: Cl Mcdonald MD. Ordering:CHARLA Bojorquez MD
--- NOTE | 2018-09-13 14:52 | DI.VRAD_ITS ---
EXAM: MR Angiogram Head Without Contrast, Arteries EXAM DATE/TIME: 09/13/2018 12:58 PM CLINICAL HISTORY: 63 years old, male; Signs and symptoms; Other: AMS, R/O CVA; Additional info: Unable to hold still or follow directions TECHNIQUE: MR angiogram head without contrast. Exam focused on the arteries. MIP reconstructed images were created and reviewed. COMPARISON: No relevant prior studies available. FINDINGS: Right internal carotid artery: Unremarkable. Intracranial segment is patent with no significant stenosis. No aneurysm. Right anterior cerebral artery: Unremarkable. No occlusion or significant stenosis. No aneurysm. Right middle cerebral artery: Unremarkable. No occlusion or significant stenosis. No aneurysm. Right posterior cerebral artery: Unremarkable. No occlusion or significant stenosis. No aneurysm. Right vertebral artery: Unremarkable. No occlusion or significant stenosis. No aneurysm. Left internal carotid artery: Unremarkable. Intracranial segment is patent with no significant stenosis. No aneurysm. Left anterior cerebral artery: Unremarkable. No occlusion or significant stenosis. No aneurysm. Left middle cerebral artery: Unremarkable. No occlusion or significant stenosis. No aneurysm. Left posterior cerebral artery: Unremarkable. No occlusion or significant stenosis. No aneurysm. Left vertebral artery: Unremarkable. No occlusion or significant stenosis. No aneurysm. Basilar artery: Unremarkable. No occlusion or significant stenosis. No aneurysm. Other findings: Evaluation limited due to motion. IMPRESSION: No acute findings. Dictated and Authenticated by: Cl Mcdonald MD. Ordering:CHARLA Bojorquez MD
[2018-09-13 15:12] LABS: Anion Gap 8.1 mmol/L (3-11); BUN 33 mg/dL (7-18); CO2 29.9 mmol/L (21.0-32.0); CREATININE 0.99 mg/dL (0.70-1.30); Calcium 7.9 mg/dL (8.5-10.1); Chloride 92 mmol/L (98-107); Glucose 150 mg/dL (70-100); Sodium 130 mmol/L (136-145)
--- NOTE | 2018-09-13 16:29 | PGE_ITS ---
Date of Service Date of service: 09/13/18 Time of Service: 11:00 Assessment and Plan (1) Elevated troponin: Current visit: Yes Status: Acute Ddx: NSTEMI, carditis due to influenza A infection. EKG with nonspecific ST changes, echo with EF 55-60%. Our case management has been unable to get in touch with the person who could consent on behalf of Mr Mccain as prior to this admission, he was able to make his own decisions (though he was also already seen in the memory clinic in [place]). Cardiology was unable to see the patient today (not in the hospital). Patient is refusing heparin gtt. I have spoken with [facility] cardiology - they have requested to see our echo images, and they'll get back to us with the verdict re cardiac cath tomorrow. (2) Acute coronary syndrome: Current visit: Yes Status: Acute as above (3) Rapid atrial fibrillation: Current visit: Yes Status: Resolved Does have episodes of paroxysmal Afib still. Increase beta alexsander. Continue cardizem. Lovenox for anticoagulation as patient refuses heparin gtt and may require a cardiac cath. (4) Influenza A: Current visit: Yes Status: Acute Continue tamiflu (5) Tobacco abuse: Current visit: Yes Status: Chronic Counselled on quitting. (6) Encephalopathy chronic: Current visit: Yes Status: Chronic Wernicke's encephalopathy is suspected. No acute CVA on MRI/MRA. At this point, it is this provider's opinion that the patient does not have capacity to make medical decisions. He does not have a guardian. He does have a sister - case management is getting her information. Continue thiamine (7) Hyponatremia: Current visit: Yes Status: Acute Improved with IV lasix - likely dilutional from mild CHF. Continue diuresis and monitor. (8) Hypomagnesemia: Current visit: Yes Status: Acute Replete, monitor on tele. (9) Discharge planning issues: Current visit: Yes Status: Acute [facility] to get back to us re necessity of transfer/how to proceed tomorrow. The patient has a sister - who may be able to help us consent. Ultimately, a full capacity evaluation should be pursued. Subjective Interval history since last seen: Ti denies dizziness, chest pain, shortness of breath, nausea, vomiting. The patient was confused all night, tearing off telemetry, refusing IV's. Exam Narrative Exam Narrative: General: Middle aged male, confused, cooperative when talking to me, A&Ox1 HEENT: EOMI, MMM Heart: RRR, no m/r/g Lungs: quiet rhonchi bilaterally GI: abdomen soft, nontender, nondistended Extremities: no e/c/c BLE's Objective Objective Clinical Data: Abnormal lab results 09/12/18 09/12/18 09/13/18 Range/Units 12:05 18:12 06:30 RBC (4.50-6.00) m/cumm Hgb (13.5-17.5) g/dL Hct (40.0-50.0) % Absolute Monocytes (0.11-0.7) k/cumm Sodium 124 L* 125 L (136-145) mmol/L Chloride 87 L 90 L (98-107) mmol/L BUN 24 H 31 H (7-18) mg/dL Glucose 189 H 167 H (70-100) mg/dL Calcium 8.0 L 7.8 L (8.5-10.1) mg/dL Magnesium 2.5 H (1.8-2.4) mg/dL Troponin I (0.00-0.06) ng/mL NT-Pro-B Natriuret Pep 3909 H ( - 299) pg/mL 09/13/18 09/13/18 09/13/18 Range/Units 06:30 06:30 14:40 RBC 3.47 L (4.50-6.00) m/cumm Hgb 10.1 L D (13.5-17.5) g/dL Hct 29.5 L D (40.0-50.0) % Absolute Monocytes 0.91 H (0.11-0.7) k/cumm Sodium 130 L (136-145) mmol/L Chloride 92 L (98-107) mmol/L BUN 33 H (7-18) mg/dL Glucose 150 H (70-100) mg/dL Calcium 7.9 L (8.5-10.1) mg/dL Magnesium (1.8-2.4) mg/dL Troponin I 0.28 H (0.00-0.06) ng/mL NT-Pro-B Natriuret Pep ( - 299) pg/mL Vital Signs Temperature 37 C 09/13/18 12:10 Temperature Source Temporal Artery Scan 09/13/18 12:10 Pulse 64 09/13/18 14:25 Pulse 68 09/13/18 14:25 Respiratory Rate 17 09/13/18 14:25 Respiratory Effort Non-Labored 09/13/18 12:10 Respiratory Depth Shallow 09/13/18 12:10 Respiratory Pattern Normal 09/13/18 12:10 Blood Pressure 127/59 L 09/13/18 14:25 Blood Pressure Mean 74 09/13/18 14:25 Pulse Oximetry 93 L 09/13/18 12:10 Oxygen Delivery Method Room Air 09/13/18 00:09 Oxygen Flow Rate 0 09/13/18 00:09 Pain Level 0 09/13/18 12:10 Comment 09/13/18 07:07 Intake & Output 09/12/18 09/13/18 09/13/18 23:59 11:59 23:59 Intake Total 691.117 / 1707.125 740 / 1750 1010 / 1750 Output Total 700 / 1475 1095 / 1095 Balance -8.883 / 232.125 -355 / 655 1010 / 655 Weight 67.5 kg Intake: IV 691.117 / 957.125 500 / 1110 610 / 1110 Oral 240 / 640 400 / 640 Output: Urine 700 / 1475 1095 / 1095 Other: Urine Color Yellow Yellow Straw Urine Appearance Clear Clear Urine Odor Normal Normal Stool Size Small Stool Characteristics Liquid Brown Black Voiding Methods Urinal Urinal Laboratory Results WBC 8.88 k/cumm (4.4-10.8) D 09/13/18 06:30 RBC 3.47 m/cumm (4.50-6.00) L 09/13/18 06:30 Hgb 10.1 g/dL (13.5-17.5) L D 09/13/18 06:30 Hct 29.5 % (40.0-50.0) L D 09/13/18 06:30 MCV 85.0 fL (80-95) 09/13/18 06:30 MCH 29.1 pg (27.0-33.0) 09/13/18 06:30 MCHC 34.2 g/dL (32.0-36.0) 09/13/18 06:30 RDW 13.2 % (11.8-14.1) 09/13/18 06:30 Plt Count 216 x1000/uL (130-400) 09/13/18 06:30 MPV 10.5 fL (8.0-11.0) 09/13/18 06:30 Immature Gran % 0.2 09/13/18 06:30 Neutrophils % 73.7 09/13/18 06:30 Lymphocytes % 15.9 09/13/18 06:30 Monocytes % 10.2 09/13/18 06:30 Eosinophils % 0.0 09/13/18 06:30 Basophils % 0.0 09/13/18 06:30 Absolute Neutrophils 6.54 k/cumm (1.2-6.7) 09/13/18 06:30 Absolute Lymphocytes 1.41 k/cumm (1.2-3.4) 09/13/18 06:30 Absolute Monocytes 0.91 k/cumm (0.11-0.7) H 09/13/18 06:30 Absolute Eosinophils 0.00 k/cumm (0.0-0.7) 09/13/18 06:30 Absolute Basophils 0.00 k/cumm (0.0-0.2) 09/13/18 06:30 APTT 27.3 sec (21.0-31.4) 09/13/18 06:30 Sodium 130 mmol/L (136-145) L 09/13/18 14:40 Potassium 4.0 mmol/L (3.5-5.1) 09/13/18 14:40 Chloride 92 mmol/L (98-107) L 09/13/18 14:40 Carbon Dioxide 29.9 mmol/L (21.0-32.0) 09/13/18 14:40 Anion Gap 8.1 mmol/L (3-11) 09/13/18 14:40 BUN 33 mg/dL (7-18) H 09/13/18 14:40 Creatinine 0.99 mg/dL (0.70-1.30) 09/13/18 14:40 Estimated GFR/1.73 m2 >= 60.00 (mL/min/1.73m2) 09/13/18 14:40 Glucose 150 mg/dL (70-100) H 09/13/18 14:40 Lactate 1.5 mmol/L (0.6-1.4) H 09/12/18 08:15 Calcium 7.9 mg/dL (8.5-10.1) L 09/13/18 14:40 Magnesium 2.1 mg/dL (1.8-2.4) 09/13/18 06:30 Total Bilirubin 0.4 mg/dL (0.2-1.0) 09/12/18 06:45 AST 172 U/L (15-37) H 09/12/18 06:45 ALT 36 U/L (12-78) 09/12/18 06:45 Alkaline Phosphatase 76 U/L (46-116) 09/12/18 06:45 Troponin I 0.28 ng/mL (0.00-0.06) H 09/13/18 06:30 NT-Pro-B Natriuret Pep 3909 pg/mL (-299) H 09/12/18 12:05 Total Protein 7.3 g/dL (6.4-8.2) 09/12/18 06:45 Albumin 2.8 g/dL (3.4-5.0) L 09/12/18 06:45 Triglycerides 64 mg/dL (30-150) 09/12/18 06:45 Total Cholesterol 96 mg/dL (50-200) 09/12/18 06:45 LDL Cholesterol Direct 49 mg/dL (<100) 09/12/18 06:45 HDL Cholesterol 38 mg/dL (40-60) L 09/12/18 06:45 TSH 1.09 uIU/mL (0.358-3.74) 09/12/18 06:45 Free T4 1.19 ng/dL (0.76-1.46) 09/12/18 06:45 Urine Color Yellow (Yellow) 09/12/18 11:58 Urine Clarity Clear 09/12/18 11:58 Urine pH 6.5 (5-8) 09/12/18 11:58 Ur Specific Tunas 1.010 (1.005-1.025) 09/12/18 11:58 Urine Protein 30 mg/dL (Negative) H 09/12/18 11:58 Urine Ketones Negative mg/dL (Negative) 09/12/18 11:58 Urine Blood Moderate (Negative) H 09/12/18 11:58 Urine Nitrite Negative (Negative) 09/12/18 11:58 Urine Bilirubin Negative (Negative) 09/12/18 11:58 Urine Urobilinogen 0.2 EU/dL (Up TO 0.2) 09/12/18 11:58 Ur Leukocyte Esterase Negative (Negative) 09/12/18 11:58 Urine RBC 5-10 (0-2) H 09/12/18 11:58 Urine WBC 0-2 HPF (0-5) 09/12/18 11:58 Ur Epithelial Cells Negative HPF (Negative) 09/12/18 11:58 Urine Crystals Negative HPF (Negative) 09/12/18 11:58 Urine Bacteria Rare HPF (Negative) 09/12/18 11:58 Urine Casts Negative LPF (Negative) 09/12/18 11:58 Urine Mucus Negative (Negative) 09/12/18 11:58 Urine Other Negative (Negative) 09/12/18 11:58 Ur Culture Indicated? No 09/12/18 11:58 Ur Random Sodium 59 mmol/L 09/13/18 13:30 Urine Glucose Negative mg/dL (Negative) 09/12/18 11:58
[2018-09-13] MEDS: QUEtiapine 25 MG TAB PO (17:07)
--- NOTE | 2018-09-13 17:24 | PDOC.CMPRO ---
Care Management Progress Note Dr. Donnelly requested assistance with contacting next of kin or medical support specialist attached to Ti, in order to enable consent for transfer. CM called all contacts and left messages. CM received call from caregiver Mary who agreed to outreach to Ti's sister who he has not had contact with in some time to provide consent; CM requested Mary call Hospital back with contact information for Ti's sister.
--- NOTE | 2018-09-13 17:38 | CMPROGNOTE_ITS ---
Care Management Progress Note Dr. Donnelly requested assistance with contacting next of kin or medical office secretary attached to Ti, in order to enable consent for transfer. CM called all contacts and left messages. CM received call from caregiver Mary who agreed to outreach to Ti's sister who he has not had contact with in some time to provide consent; CM requested Mary call Hospital back with contact information for Ti's sister.
[2018-09-13] MEDS: LORazepam 2 MG/ML VIAL 0.5 MG IVP (17:39)
--- NOTE | 2018-09-13 18:08 | DI.VRAD_ITS ---
EXAM: US Bilateral Duplex Bilateral Extracranial Arteries EXAM DATE/TIME: 09/13/2018 2:24 PM CLINICAL HISTORY: 63 years old, male; Signs and symptoms; Altered mental status/memory loss; Confusion or disorientation; Patient HX: Rule out CVA TECHNIQUE: Bilateral Real-time Duplex ultrasound scan of the carotid and vertebral arteries combining solis scale, color Doppler and spectral waveform analysis. COMPARISON: MR HEAD^ROUTINE WO 09/13/2018 12:50 PM FINDINGS: Right common carotid artery: Mild stenosis with slightly elevated velocity. There is a large plaque at the right carotid bulb. Right internal carotid artery: Moderate stenosis with elevated velocity measuring up to a maximum of 195 cm/s. Atherosclerosis is noted with irregular plaques, but no visualized severe canal stenosis. Right ICA/CCA ratio: Within normal limits. Right external carotid artery: Elevated velocity suggesting stenosis at the origin. Right vertebral artery: Unremarkable. Antegrade flow Left common carotid artery: Atherosclerotic plaque with mild stenosis in maximum velocity measured at 105 cm/s. Left internal carotid artery: Maximum velocity measurement in the proximal ICA at 132 cm/s with atherosclerotic plaque, but not visualized severe stenosis. Left ICA/CCA ratio: Within normal limits. Left external carotid artery: Mild stenosis. Left vertebral artery: Unremarkable. Antegrade flow. IMPRESSION: 1. Moderate bilateral stenosis of the internal carotid arteries. 2. Mild bilateral common carotid stenosis. COMMENT: Carotid Stenosis Reference using SRU criteria: Mild: <50% stenosis. ICA PSV is less than 125 cm/second and plaque or intimal thickening is visible. Moderate: 50-69% stenosis. ICA PSV is 125 to 230 cm/second and plaque is visible. Severe: 70-94% stenosis. ICA PSV is more than 230 cm/second and visible plaque and lumen narrowing are seen. Near occlusion: 95-99% stenosis. ICA PSV is variable and significant plaque and luminal narrowing are seen. Occluded: 100% stenosis. No flow identified. Dictated and Authenticated by: Cl Mcdonald MD. Ordering:CHARLA Bojorquez MD
[2018-09-13] MEDS: Enoxaparin 80 MG/0.8 ML SYR 70 MG SC (20:19)
[2018-09-13] MEDS: Atorvastatin 20 MG TAB PO (20:20)
[2018-09-13] MEDS: Metoprolol 50 MG TAB PO (20:20)
[2018-09-13] MEDS: Normal Saline Flush 10 ML SYR IVP (20:24)
[2018-09-13] MEDS: Patch Removal 1 EACH TP (20:37)
[2018-09-13 21:53] LABS: Osmolality, Urine 250 mos/kg (150-1150)
[2018-09-13 22:47] LABS: Osmolality Serum 275 mos/kg (275-295)
--- NOTE | 2018-09-13 22:54 | NUR.NOTE ---
Patients sister called the unit yolaura. Her name is Krystal Jamil she lives in [place] [place] [facility] her number is [phone] she has been estranged from her brother since their mother's in 2008. IF he needs further workup she would prefer [place], as that is much closer to her than [facility]. She is happy to do whatever she can to assist with her brothers care. She is a nurse. She seemed very knowledgeable about his history and is a bit surprised he is doing as well as he is. I told her to expect a call from someone here tomorrow. Ti's other sister is Malaika Wright in the [facility] area and her number is: [phone]
[2018-09-14] VITALS (40 sets, daily range): BP systolic 90–140; BP diastolic 38–88; PULSE 26–92; RESP 15–31; TEMP 37–38.3; O2SAT 81–97
[2018-09-14] MEDS: Metoprolol 50 MG TAB PO ×4 (01:00→17:24)
[2018-09-14] MEDS: Enoxaparin 80 MG/0.8 ML SYR 70 MG SC ×2 (04:55→17:24)
[2018-09-14] MEDS: Acetaminophen 325 MG TAB PO ×3 (04:56→20:03)
[2018-09-14] MEDS: Normal Saline Flush 10 ML SYR IVP ×3 (06:21→17:28)
--- NOTE | 2018-09-14 06:27 | NUR.NOTE ---
attempt made to draw am labs from midline cath without success. Cath flushed very well. Pt was angry at being awoken and kept stating can't you just leave me alone and no one is going to stick me morning labs were not drawn.
[2018-09-14] MEDS: Aspirin 81 MG CHEW PO (09:09)
[2018-09-14] MEDS: Thiamine 100 MG TAB PO (09:09)
[2018-09-14] MEDS: Gabapentin 100 MG CAP 200 MG PO ×3 (09:09→20:04)
[2018-09-14] MEDS: Oseltamivir 75 MG CAP PO ×2 (09:09→20:04)
[2018-09-14] MEDS: Magnesium Chloride 64 MG TABCR PO ×2 (09:10→21:51)
[2018-09-14] MEDS: Furosemide 20 MG/2 ML VIAL IVP ×2 (09:10→16:05)
[2018-09-14] MEDS: Timolol 0.5% 5 ML BTL OP ×2 (09:58→20:04)
--- NOTE | 2018-09-14 13:33 | W.PM.PROGNOT ---
Date of Service Date of service: 09/14/18 Time of Service: 14:15 Assessment and Plan (1) Elevated troponin: Current visit: Yes Status: Acute (2) Rapid atrial fibrillation: Current visit: Yes Status: Resolved Converted to sinus - continue current regimen of intensified CCB and BB therapy, especially given current fevers. Does not appear to be anticoagulated chronically - currently on therapeutic lovenox. (3) Influenza A: Current visit: Yes Status: Acute Continue oseltamivir, now day #3. Patient is now febrile after having had no fever since admission - he is also refusing his medications. Continue to encourage patient to be compliant with his treatment plan. Call placed again to caregiver. Fever may be on basis of Influenza, but need to check CXR, urinalysis, and repeat blood cultures as well to ensure lack of other etiology. (4) Tobacco abuse: Current visit: Yes Status: Chronic Noted. Patient threatening to leave to smoke. Will ensure NRT in the form of nicotrol. (5) Encephalopathy chronic: Current visit: Yes Status: Chronic Wernicke's encephalopathy suspected, with potential acute delirium in setting of infection and hospitalization. Status is apparently not patient's baseline. No acute CVA on MRI/MRA. We will continue to work with patient's caregiver and nursing to ensure compliance with above treatment plan, and monitor symptoms closely. (6) Hyponatremia: Current visit: Yes Status: Acute Vastly improved from initial value with IV Lasix - likely secondary to volume overload. Monitor, but currently refusing labs. (7) DVT prophylaxis: Current visit: Yes Status: Acute Currently on therapeutic doses of Lovenox. PPI therapy added for GI prophylaxis as well.
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
--- NOTE | 2018-09-14 14:00 | DI.RAD_ITS ---
SYMPTOM/DIAGNOSIS: FEVER, INFLUENZA PA AND LATERAL CHEST: Comparison is made with 09/11/18. The heart size is normal. The lungs are again hyperinflated and show mild scarring. There are stable mid thoracic compression fractures and old right upper rib fractures. No infiltrate, effusion or pneumothorax is seen. IMPRESSION: No acute abnormality.
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
[2018-09-14 15:37] LABS: Bilirubin Negative (Negative); Blood Moderate (Negative); Clarity Clear; Glucose Negative (Negative); Ketones Negative (Negative); Leukocyte Esterase Negative (Negative); Nitrite Negative (Negative); Urobilinogen 0.2 EU/dL (Up TO 0.2)
[2018-09-14 15:47] LABS: Epithelial Cells Rare HPF (Negative); WBC 0-2 HPF (0-5)
[2018-09-14 15:48] LABS: Bacteria Negative HPF (Negative); C & S Indicated? No; Casts Negative LPF (Negative); Crystals Negative HPF (Negative); Mucus Trace (Negative)
[2018-09-14 17:35] LABS: Abs Immature Grans 0.02 k/cumm (0.0-0.09); Absolute Basophil Count 0.03 k/cumm (0.0-0.2); Absolute Lymphocyte Count 2.01 k/cumm (1.2-3.4); Absolute Monocyte Count 1.06 k/cumm (0.11-0.7); Absolute Neutrophil Count 4.42 k/cumm (1.2-6.7); Basophils % 0.4; HCT 32.5 % (40.0-50.0); Immature Grans % 0.3; Lymphocytes % 26.7; Mean Corp. HGB Concentration 33.8 g/dL (32.0-36.0); Mean Corpuscular Hemoglobin 29.1 pg (27.0-33.0); Mean Platelet Volume 9.9 fL (8.0-11.0); Monocytes % 14.1; Neutrophils % 58.5; Platelet Count 225 x1000/uL (130-400); RBC 3.78 m/cumm (4.50-6.00); RBC Distribution Width 13.4 % (11.8-14.1); White Blood Cell Count 7.54 k/cumm (4.4-10.8)
[2018-09-14 17:42] LABS: Anion Gap 6.6 mmol/L (3-11); BUN 34 mg/dL (7-18); CO2 33.4 mmol/L (21.0-32.0); CREATININE 1.15 mg/dL (0.70-1.30); Calcium 8.3 mg/dL (8.5-10.1); Chloride 94 mmol/L (98-107); Glucose 122 mg/dL (70-100); Magnesium 1.7 mg/dL (1.8-2.4); Potassium 3.1 mmol/L (3.5-5.1); Sodium 134 mmol/L (136-145)
[2018-09-14] MEDS: Atorvastatin 20 MG TAB PO (20:03)
[2018-09-14] MEDS: QUEtiapine 25 MG TAB PO (20:04)
[2018-09-14] MEDS: Patch Removal 1 EACH TP (21:33)
[2018-09-14] MEDS: Magnesium Oxide 400 MG TAB PO (21:52)
[2018-09-14] MEDS: Potassium Chloride 20 MEQ TABCR 40 MEQ PO (21:52)
[2018-09-15] VITALS (36 sets, daily range): BP systolic 91–146; BP diastolic 42–82; PULSE 63–175; RESP 13–28; TEMP 36.4–37.8; O2SAT 80–98
[2018-09-15] MEDS: Metoprolol 50 MG TAB PO ×3 (00:31→18:09)
[2018-09-15 07:12] LABS: HCT 32.1 % (40.0-50.0); HGB 10.5 g/dL (13.5-17.5); Mean Corp. HGB Concentration 32.7 g/dL (32.0-36.0); Mean Corpuscular Hemoglobin 28.2 pg (27.0-33.0); Mean Corpuscular Volume 86.3 fL (80-95); Mean Platelet Volume 10.5 fL (8.0-11.0); Platelet Count 200 x1000/uL (130-400); RBC 3.72 m/cumm (4.50-6.00); RBC Distribution Width 13.4 % (11.8-14.1)
[2018-09-15 07:23] LABS: Anion Gap 7.7 mmol/L (3-11); BUN 33 mg/dL (7-18); CO2 30.3 mmol/L (21.0-32.0); CREATININE 1.03 mg/dL (0.70-1.30); Calcium 8.3 mg/dL (8.5-10.1); Chloride 98 mmol/L (98-107); Glucose 139 mg/dL (70-100); Potassium 3.5 mmol/L (3.5-5.1); Sodium 136 mmol/L (136-145)
[2018-09-15 07:32] LABS: Absolute Lymphocyte Count 2.61 k/cumm (1.2-3.4); Absolute Monocyte Count 0.87 k/cumm (0.11-0.7); Absolute Neutrophil Count 5.22 k/cumm (1.2-6.7); Atypical Lymphocytes % 8; Diff Comment Manual Differential; Polychromasia Present
[2018-09-15] MEDS: Thiamine 100 MG TAB PO (08:32)
[2018-09-15] MEDS: Gabapentin 100 MG CAP 200 MG PO ×3 (08:32→21:36)
[2018-09-15] MEDS: Oseltamivir 75 MG CAP PO ×2 (08:32→21:36)
[2018-09-15] MEDS: QUEtiapine 25 MG TAB PO ×2 (08:32→21:36)
[2018-09-15] MEDS: Aspirin 81 MG CHEW PO (08:32)
[2018-09-15] MEDS: Pantoprazole 40 MG VIAL IVP (08:33)
[2018-09-15] MEDS: Normal Saline Flush 10 ML SYR IVP ×2 (08:33→09:19)
[2018-09-15] MEDS: Furosemide 20 MG/2 ML VIAL IVP ×2 (08:45→09:15)
[2018-09-15] MEDS: Magnesium Chloride 64 MG TABCR PO ×2 (09:15→21:36)
[2018-09-15] MEDS: Timolol 0.5% 5 ML BTL OP ×2 (09:20→21:36)
[2018-09-15] MEDS: Potassium Chloride 20 MEQ TABCR 40 MEQ PO (10:04)
[2018-09-15] MEDS: Magnesium Oxide 400 MG TAB PO ×2 (10:05→16:52)
--- NOTE | 2018-09-15 14:26 | PDOC.CMPRO ---
- If Service Date Differs Date of service: 09/15/18 Time of Service: 14:26 Care Management Progress Note S/O: Ti remains in the ICU where he is being treated for influenza, rapid A-fib and elevated troponins. Per MD report, a transfer to [facility] will not likely happen; chest x-ray was negative as was his UA. Ti will receive his last dosing of Tamiflu today. Ti's caregiver, Mary, visited earlier in the day. Per nursing, Ti agreed to take his medications this morning, though did refuse his enoxaparin. A: 63 year old male admitted to [facility] for Influenza/Rapid AFIB, elevated troponins. P: Ti will continue to be monitored and will return home with his caregiver with scheduled outpatient follow up [id number] to tertiary per [facility] consult. Transport determined by disposition. will continue to offer support to patient, family, and care team regarding discharge planning and disposition.
--- NOTE | 2018-09-15 14:33 | CMPROGNOTE_ITS ---
- If Service Date Differs Date of service: 09/15/18 Time of Service: 14:26 Care Management Progress Note S/O: Ti remains in the ICU where he is being treated for influenza, rapid A- fib and elevated troponins. Per MD report, a transfer to [facility] will not likely happen; chest x-ray was negative as was his UA. Ti will receive his last dosing of Tamiflu today. Ti's caregiver, Mary, visited earlier in the day. Per nursing, Ti agreed to take his medications this morning, though did ref use his enoxaparin. A: 63 year old male admitted to [facility] for Influenza/Rapid AFIB, elevated troponins. P: Ti will continue to be monitored and will return home with his caregiver with scheduled outpatient follow up [id number] to tertiary per [facility] consult. Transport determined by disposition. will continue to offer support to patient, family, and care team regarding discharge planning and disposition.
[2018-09-15] MEDS: Potassium Chloride 10 MEQ TABCR PO (16:53)
--- NOTE | 2018-09-15 17:56 | W.PM.PROGNOT ---
Date of Service Date of service: 09/15/18 Time of Service: 17:56 Assessment and Plan (1) Elevated troponin: Current visit: Yes Status: Acute In setting of Influenza infection and Afib with RVR. Original EKG with nonspecific ST changes, ECHO with LVEF 55-60%, wall motion not commented on. Likely demand in patient with underlying CAD. May ultimately benefit from [facility] when stable, but currently still under treatment. As patient had refused heparin gtt, he remains on therapeutic lovenox, occasionaly refusing injection - currently going on 48 hours of treatment. Continue high potency statin, BB, and daily ASA, and discontinue therapeutic anticoagulation tomorrow. Elevated troponin has down trended, last checked at 0.28 from a peak of just over 1. Patient will likely benefit from stress testing, possible diagnostic left heart catheterization. Will discuss further with cardiology once patient is stabilized. (2) Rapid atrial fibrillation: Current visit: Yes Status: Resolved Converted to sinus - continue current regimen of intensified CCB and BB therapy, especially given current fevers. Does not appear to be anticoagulated chronically - currently on therapeutic lovenox. (3) Influenza A: Current visit: Yes Status: Acute Continue oseltamivir, now day #4/5. Patient now afebrile for approximately 24 hours, after having had no fever since admission but being intermittently febrile over 2 days. Fever may be on basis of Influenza. CXR, urinalysis checked and negative. Blood Cultures drawn and pending as well. (4) Tobacco abuse: Current visit: Yes Status: Chronic Noted. Continue NRT in the form of nicotrol. (5) Encephalopathy chronic: Current visit: Yes Status: Chronic Wernicke's encephalopathy suspected, with potential acute delirium in setting of infection and hospitalization. Confusion is apparently not patient's baseline. No acute CVA on MRI/MRA. Will continue to work with patient's caregiver and nursing to ensure compliance with above treatment plan, and monitor symptoms closely. Continue standing low dose Seroquel. (6) Hyponatremia: Current visit: Yes Status: Acute Vastly improved from initial value with IV Lasix - likely secondary to volume overload. Currently remains resolved. (7) DVT prophylaxis: Current visit: Yes Status: Acute Currently on therapeutic doses of Lovenox. PPI therapy added for GI prophylaxis as well. Subjective Interval history since last seen: This is a 63-year-old man with a prior medical history significant for paroxysmal Afib as well as daily tobacco use, admitted from [facility] emergency department on 09/11 with a diagnosis of influenza. Mr. Mccain has a past medical history significant for paroxysmal atrial fibrillation, dyslipidemia, daily tobacco abuse, and a history of drug and alcohol abuse in remission. He lives in a community prison in [place]. The patient was noted to have of a fever of 101 on the day prior to his admission, with a worsening cough and reported weakness. His caregiver has been sick with pneumonia, and he had had sick contacts. In the emergency Department he was found to have a rapid heart rate in the 160's and in AFib. Rapid flu swab positive for influenza A. His troponin was elevated at 0.67, later trended to 1.09. His medical regimen was optimized for likely demand ischemia. The patient was confused 2 nights ago, intermittently tearing off telemetry, refusing medications, and threatening to staff. This is apparently not his baseline per discussion with his caregiver this morning. He was started on low dose Seroquel and reportedly had a better evening last night. He was febrile after an initial 2-day course of no fevers, but without any elevation in temperature over the course of the day today. Lab work is remarkable for a normalized sodium level. No other events reported. Exam Narrative Exam Narrative: General: Patient appears comfortable, Awake and alert, NAD Neck: Supple CV: Regular, nontachycardic, S1S2, No rubs, murmurs, or gallops. Pulmonary: Clear to auscultation bilaterally on limited exam, with continued mild crackles at the right base, no wheezing or rhonchi. Abdomen: + Bowel Sounds, soft, nontender, nondistended Vascular: No lower extremity edema Psych: Normal mood and affect. Objective Objective Clinical Data: Abnormal lab results 09/15/18 09/15/18 Range/Units 06:35 06:35 RBC 3.72 L (4.50-6.00) m/cumm Hgb 10.5 L (13.5-17.5) g/dL Hct 32.1 L (40.0-50.0) % Absolute Monocytes 0.87 H (0.11-0.7) k/cumm BUN 33 H (7-18) mg/dL Glucose 139 H (70-100) mg/dL Calcium 8.3 L (8.5-10.1) mg/dL Vital Signs Temperature 37.4 C 09/15/18 12:47 Temperature Source Temporal Artery Scan 09/15/18 12:48 Pulse 87 09/15/18 14:01 Pulse 90 09/15/18 14:01 Respiratory Rate 16 09/15/18 14:01 Respiratory Effort Non-Labored 09/15/18 12:48 Respiratory Depth Normal 09/15/18 12:48 Respiratory Pattern Normal 09/15/18 12:48 Blood Pressure 135/63 09/15/18 14:01 Blood Pressure Mean 78 09/15/18 14:01 Blood Pressure Position Supine 09/14/18 20:56 Pulse Oximetry 93 L 09/15/18 08:01 Oxygen Delivery Method Nasal Cannula 09/15/18 12:48 Oxygen Flow Rate 2 09/15/18 12:48 Pain Level 0 09/15/18 12:48 Comment 09/13/18 07:07 Intake & Output 09/14/18 09/15/18 09/15/18 23:59 11:59 23:59 Intake Total 525 / 525 Output Total 500 / 1125 700 / 1050 350 / 1050 Balance 25 / -600 -700 / -1050 -350 / -1050 Weight 63.2 kg Intake: Oral 525 / 525 Output: Urine 500 / 1125 700 / 1050 350 / 1050 Other: Urine Color Yellow Yellow Yellow Straw Urine Appearance Clear Clear Clear Urine Odor Normal Strong Strong Comment pt voids to urinal. Concentrated odorous urine. Concentrated odorous urine. Voiding Methods Urinal Urinal Urinal Laboratory Results WBC 8.70 k/cumm (4.4-10.8) 09/15/18 06:35 RBC 3.72 m/cumm (4.50-6.00) L 09/15/18 06:35 Hgb 10.5 g/dL (13.5-17.5) L 09/15/18 06:35 Hct 32.1 % (40.0-50.0) L 09/15/18 06:35 MCV 86.3 fL (80-95) 09/15/18 06:35 MCH 28.2 pg (27.0-33.0) 09/15/18 06:35 MCHC 32.7 g/dL (32.0-36.0) 09/15/18 06:35 RDW 13.4 % (11.8-14.1) 09/15/18 06:35 Plt Count 200 x1000/uL (130-400) 09/15/18 06:35 MPV 10.5 fL (8.0-11.0) 09/15/18 06:35 Immature Gran % 0.0 09/15/18 06:35 Neutrophils % 60.0 09/15/18 06:35 Lymphocytes % 22.0 09/15/18 06:35 Monocytes % 10.0 09/15/18 06:35 Eosinophils % 0.0 09/15/18 06:35 Basophils % 0.0 09/15/18 06:35 Absolute Neutrophils 5.22 k/cumm (1.2-6.7) 09/15/18 06:35 Absolute Lymphocytes 2.61 k/cumm (1.2-3.4) 09/15/18 06:35 Absolute Monocytes 0.87 k/cumm (0.11-0.7) H 09/15/18 06:35 Absolute Eosinophils 0.00 k/cumm (0.0-0.7) 09/15/18 06:35 Absolute Basophils 0.00 k/cumm (0.0-0.2) 09/15/18 06:35 Differential Comment Manual differential 09/15/18 06:35 Atypical Lymphocytes 8 09/15/18 06:35 RBC Morphology See below 09/15/18 06:35 Polychromasia Present 09/15/18 06:35 APTT 27.3 sec (21.0-31.4) 09/13/18 06:30 Sodium 136 mmol/L (136-145) 09/15/18 06:35 Potassium 3.5 mmol/L (3.5-5.1) 09/15/18 06:35 Chloride 98 mmol/L (98-107) 09/15/18 06:35 Carbon Dioxide 30.3 mmol/L (21.0-32.0) 09/15/18 06:35 Anion Gap 7.7 mmol/L (3-11) 09/15/18 06:35 BUN 33 mg/dL (7-18) H 09/15/18 06:35 Creatinine 1.03 mg/dL (0.70-1.30) 09/15/18 06:35 Estimated GFR/1.73 m2 >= 60.00 (mL/min/1.73m2) 09/15/18 06:35 Glucose 139 mg/dL (70-100) H 09/15/18 06:35 Serum Osmolality 275 mOsm/kg (275-295) 09/13/18 06:50 Lactate 1.5 mmol/L (0.6-1.4) H 09/12/18 08:15 Calcium 8.3 mg/dL (8.5-10.1) L 09/15/18 06:35 Magnesium 1.7 mg/dL (1.8-2.4) L 09/14/18 17:10 Total Bilirubin 0.4 mg/dL (0.2-1.0) 09/12/18 06:45 AST 172 U/L (15-37) H 09/12/18 06:45 ALT 36 U/L (12-78) 09/12/18 06:45 Alkaline Phosphatase 76 U/L (46-116) 09/12/18 06:45 Troponin I 0.28 ng/mL (0.00-0.06) H 09/13/18 06:30 NT-Pro-B Natriuret Pep 3909 pg/mL (-299) H 09/12/18 12:05 Total Protein 7.3 g/dL (6.4-8.2) 09/12/18 06:45 Albumin 2.8 g/dL (3.4-5.0) L 09/12/18 06:45 Triglycerides 64 mg/dL (30-150) 09/12/18 06:45 Total Cholesterol 96 mg/dL (50-200) 09/12/18 06:45 LDL Cholesterol Direct 49 mg/dL (<100) 09/12/18 06:45 HDL Cholesterol 38 mg/dL (40-60) L 09/12/18 06:45 TSH 1.09 uIU/mL (0.358-3.74) 09/12/18 06:45 Free T4 1.19 ng/dL (0.76-1.46) 09/12/18 06:45 Urine Color Yellow (Yellow) 09/14/18 13:15 Urine Clarity Clear 09/14/18 13:15 Urine pH 6.0 (5-8) 09/14/18 13:15 Ur Specific [place] 1.010 (1.005-1.025) 09/14/18 13:15 Urine Protein 30 mg/dL (Negative) H 09/14/18 13:15 Urine Ketones Negative mg/dL (Negative) 09/14/18 13:15 Urine Blood Moderate (Negative) H 09/14/18 13:15 Urine Nitrite Negative (Negative) 09/14/18 13:15 Urine Bilirubin Negative (Negative) 09/14/18 13:15 Urine Urobilinogen 0.2 EU/dL (Up TO 0.2) 09/14/18 13:15 Ur Leukocyte Esterase Negative (Negative) 09/14/18 13:15 Urine RBC 3-5 (0-2) H 09/14/18 13:15 Urine WBC 0-2 HPF (0-5) 09/14/18 13:15 Ur Epithelial Cells Rare HPF (Negative) 09/14/18 13:15 Urine Crystals Negative HPF (Negative) 09/14/18 13:15 Urine Bacteria Negative HPF (Negative) 09/14/18 13:15 Urine Casts Negative LPF (Negative) 09/14/18 13:15 Urine Mucus Trace (Negative) 09/14/18 13:15 Urine Other Negative (Negative) 09/12/18 11:58 Ur Culture Indicated? No 09/14/18 13:15 Urine Osmolality 250 mosm/Kg (150-1150) 09/13/18 13:30 Ur Random Sodium 59 mmol/L 09/13/18 13:30 Urine Glucose Negative mg/dL (Negative) 09/14/18 13:15 Objective Narrative Objective Narrative: Exam(s) EXAM: XR Chest, 2 Views EXAM DATE/TIME: 09/14/2018 8:17 AM CLINICAL HISTORY: 63 years old, male; Signs and symptoms; Fever; Patient HX: Influenza TECHNIQUE: XR of the chest, 2 views. COMPARISON: CR XR CHEST 2V PA LATERAL 09/11/2018 6:25 PM FINDINGS: Lungs: Hyperexpanded lung ramos consistent with COPD . No focal consolidation Pleural space: Unremarkable. No pleural effusion. No pneumothorax. Heart/Mediastinum: Stable cardiac silhouette Bones/joints: Screw in the right humeral head IMPRESSION: No focal consolidation
[2018-09-15] MEDS: Metoprolol 5 MG/5 ML VIAL IVP (18:07)
[2018-09-15] MEDS: Enoxaparin 80 MG/0.8 ML SYR 70 MG SC (18:09)
[2018-09-15] MEDS: Atorvastatin 20 MG TAB PO (21:36)
[2018-09-15] MEDS: VANCOMYCIN 1,000 MG in Normal Saline 250 ML 250 MG IV (22:19)
[2018-09-16] VITALS (45 sets, daily range): BP systolic 88–127; BP diastolic 50–79; PULSE 67–162; RESP 12–26; TEMP 36.7–37.3; O2SAT 90–98
[2018-09-16] MEDS: Metoprolol 50 MG TAB PO ×3 (04:56→21:37)
[2018-09-16] MEDS: Enoxaparin 80 MG/0.8 ML SYR 70 MG SC (04:56)
[2018-09-16 07:03] LABS: HCT 29.8 % (40.0-50.0); HGB 9.6 g/dL (13.5-17.5); Mean Corp. HGB Concentration 32.2 g/dL (32.0-36.0); Mean Corpuscular Hemoglobin 28.4 pg (27.0-33.0); Mean Corpuscular Volume 88.2 fL (80-95); Mean Platelet Volume 10.5 fL (8.0-11.0); Platelet Count 200 x1000/uL (130-400); RBC 3.38 m/cumm (4.50-6.00); RBC Distribution Width 13.4 % (11.8-14.1); White Blood Cell Count 12.08 k/cumm (4.4-10.8)
[2018-09-16 07:14] LABS: Anion Gap 8.1 mmol/L (3-11); BUN 22 mg/dL (7-18); CO2 30.9 mmol/L (21.0-32.0); CREATININE 1.01 mg/dL (0.70-1.30); Calcium 8.3 mg/dL (8.5-10.1); Chloride 101 mmol/L (98-107); Glucose 136 mg/dL (70-100); Potassium 3.7 mmol/L (3.5-5.1); Sodium 140 mmol/L (136-145)
[2018-09-16 07:53] LABS: Absolute Lymphocyte Count 5.07 k/cumm (1.2-3.4); Absolute Monocyte Count 1.09 k/cumm (0.11-0.7); Absolute Neutrophil Count 5.92 k/cumm (1.2-6.7); Atypical Lymphocytes % 6
[2018-09-16 07:54] LABS: Diff Comment Manual Differential; Polychromasia Present
[2018-09-16] MEDS: POTASSIUM CHLORIDE 20 MEQ, POTASSIUM CHLORIDE 10 MEQ 30 MEQ PO (09:44)
[2018-09-16] MEDS: QUEtiapine 25 MG TAB PO (09:44)
[2018-09-16] MEDS: Gabapentin 100 MG CAP 200 MG PO ×3 (09:45→21:30)
[2018-09-16] MEDS: Aspirin 81 MG CHEW PO (09:46)
[2018-09-16] MEDS: Pantoprazole 40 MG VIAL IVP (09:46)
[2018-09-16] MEDS: Normal Saline Flush 10 ML SYR IVP ×2 (09:46→21:31)
[2018-09-16] MEDS: Thiamine 100 MG TAB PO (09:46)
[2018-09-16] MEDS: Timolol 0.5% 5 ML BTL OP ×2 (10:00→21:34)
[2018-09-16] MEDS: VANCOMYCIN 1,000 MG in Normal Saline 250 ML 250 MG IV (10:39)
[2018-09-16] MEDS: Magnesium Chloride 64 MG TABCR PO ×2 (10:40→21:33)
[2018-09-16] MEDS: Magnesium Oxide 400 MG TAB PO (10:40)
[2018-09-16] MEDS: Acetaminophen 325 MG TAB PO (13:43)
--- NOTE | 2018-09-16 14:04 | W.PM.PROGNOT ---
Date of Service Date of service: 09/16/18 Time of Service: 14:05 Assessment and Plan (1) Elevated troponin: Current visit: Yes Status: Acute In setting of Influenza infection and Afib with RVR. Original EKG with nonspecific ST changes, ECHO with LVEF 55-60%, wall motion not commented on. Likely demand in patient with underlying CAD. May ultimately benefit from [facility] when stable, but currently still under treatment. As patient had refused heparin gtt, he remains on therapeutic lovenox, occasionaly refusing injection - currently going on 48 hours of treatment. Continue high potency statin, BB, and daily ASA -also received approximately 48 hours of therapeutic Lovenox (patient was refusing a heparin drip). Elevated troponin has down trended, last checked at 0.28 from a peak of just over 1. Patient will likely benefit from stress testing, possible diagnostic left heart catheterization. Will discuss further with cardiology once patient is stabilized. (2) Rapid atrial fibrillation: Current visit: Yes Status: Resolved Converted to sinus -now intermittently skipping in and out of A. fib, which may be related to down titration of beta-alexsander therapy from every 6 hour dosing to every 12. Will change metoprolol to long-acting to avoid any lapses in coverage, and titrate accordingly. Will benefit from continued cardiac monitoring. CHADSVASc score calculated at 1 based on age of 63 -please note that Mr. Mccain has no evidence of heart failure, and no known diabetes, hypertension, prior CVA, or vascular disease. He may benefit from chronic anticoagulation if tolerated versus antiplatelet therapy with daily aspirin. For now continue current regimen of intensified CCB and BB therapy as above. (3) Anemia: Current visit: Yes Status: Chronic Initial presenting hemoglobin of 14, values have dropped down to the 10-11 range previously, down to 9.6 this morning. This is in the setting of therapeutic anticoagulation for presumed NSTEMI. Mr. Mccain may benefit from lifelong anticoagulation given recurrence of AFib with a CHADSVASc score of only 1 with age is the only qualifier, but if anticoagulation is not tolerated may do well with antiplatelet therapy as well. Current anemia is normocytic, with iron studies, B12, folic acid, TSH, and stool for occult blood all ordered and pending. For now initiate apixaban and monitor hemoglobin carefully. (4) Influenza A: Current visit: Yes Status: Acute Received 5 day course of Oseltamivir. Patient now afebrile for approximately 48 hours. CXR, urinalysis checked and negative. Blood Cultures drawn - positive in only one set for coag negative staph, which may be contaminant. Continue to monitor. (5) Tobacco abuse: Current visit: Yes Status: Chronic Noted. Continue NRT in the form of nicotrol. (6) Encephalopathy chronic: Current visit: Yes Status: Chronic Wernicke's encephalopathy suspected, with potential acute delirium in setting of infection and hospitalization. Confusion is apparently not patient's baseline. No acute CVA on MRI/MRA. Will continue to work with patient's caregiver and nursing to ensure compliance with above treatment plan, and monitor symptoms closely. Continue standing low dose Seroquel - decrease dose in half given some mild somnolence this morning. (7) Hyponatremia: Current visit: Yes Status: Acute Vastly improved from initial value with Lasix - likely secondary to volume overload. Currently remains resolved. (8) DVT prophylaxis: Current visit: Yes Status: Acute Currently on therapeutic Apixaban. PPI therapy added for GI prophylaxis as well. Subjective Interval history since last seen: This is a 63-year-old man with a prior medical history significant for paroxysmal Afib as well as daily tobacco use, admitted from [facility] emergency department on 09/11 with a diagnosis of influenza. Mr. Mccain has a past medical history significant for paroxysmal atrial fibrillation, dyslipidemia, daily tobacco abuse, and a history of drug and alcohol abuse in remission. He lives in a community fdc in [place]. The patient was noted to have of a fever of 101 on the day prior to his admission, with a worsening cough and reported weakness. His caregiver has been sick with pneumonia, and he had had sick contacts. In the emergency Department he was found to have a rapid heart rate in the 160's and in AFib. Rapid flu swab positive for influenza A. His troponin was elevated at 0.67, later trended to 1.09. His medical regimen was optimized for likely demand ischemia. The patient was confused previous, intermittently tearing off telemetry, refusing medications, and threatening to staff. This is apparently not his baseline per discussion with his caregiver this morning. He was started on low dose Seroquel and reportedly had a better since then. He was febrile after an initial 2-day course of no fevers, but without any elevation in temperature over the course of the day today or yesterday. Lab work is remarkable for a new mildly elevated white blood cell count. No other events reported. Exam Narrative Exam Narrative: General: Patient appears comfortable, Awake and alert, NAD Neck: Supple CV: Regular, nontachycardic, S1S2, No rubs, murmurs, or gallops. Pulmonary: Clear to auscultation bilaterally on limited exam, with continued mild crackles at the bases continued, slightly worse on the right, no wheezing or rhonchi. Abdomen: + Bowel Sounds, soft, nontender, nondistended Vascular: No lower extremity edema Psych: Normal mood and affect. Objective Objective Clinical Data: Abnormal lab results 09/16/18 09/16/18 Range/Units 06:20 06:20 WBC 12.08 H D (4.4-10.8) k/cumm RBC 3.38 L (4.50-6.00) m/cumm Hgb 9.6 L (13.5-17.5) g/dL Hct 29.8 L (40.0-50.0) % Absolute Lymphocytes 5.07 H (1.2-3.4) k/cumm Absolute Monocytes 1.09 H (0.11-0.7) k/cumm BUN 22 H D (7-18) mg/dL Glucose 136 H (70-100) mg/dL Calcium 8.3 L (8.5-10.1) mg/dL Vital Signs Temperature 37.1 C 09/16/18 12:57 Temperature Source Temporal Artery Scan 09/16/18 12:57 Pulse 86 09/16/18 12:00 Pulse 88 09/16/18 12:01 Respiratory Rate 20 09/16/18 12:01 Respiratory Effort 09/16/18 12:57 Respiratory Depth Normal 09/16/18 12:57 Respiratory Pattern Normal 09/16/18 12:57 Blood Pressure 97/57 L 09/16/18 12:00 Blood Pressure Mean 62 09/16/18 12:00 Blood Pressure Position Supine 09/16/18 03:08 Pulse Oximetry 92 L 09/16/18 12:01 Oxygen Delivery Method Room Air 09/16/18 08:26 Oxygen Flow Rate 0 09/16/18 08:26 Pain Level 7 09/16/18 13:43 Comment 09/13/18 07:07 Intake & Output 09/15/18 09/16/18 09/16/18 23:59 11:59 23:59 Intake Total 1052 / 1052 30 / 251 221 / 251 Output Total 550 / 1250 225 / 225 Balance 502 / -198 -195 / 26 Intake: IV 250 / 250 / 30 Oral 802 / 802 221 / 221 Output: Urine 550 / 1250 225 / 225 Other: Urine Color Yellow Dark [place] Urine Appearance Clear Cloudy Urine Odor Strong Normal Comment able to use urinal but needs help. occasionally incontinent pt voided a very large amount on floor Voiding Methods Urinal Incontinent Laboratory Results WBC 12.08 k/cumm (4.4-10.8) H D 09/16/18 06:20 RBC 3.38 m/cumm (4.50-6.00) L 09/16/18 06:20 Hgb 9.6 g/dL (13.5-17.5) L 09/16/18 06:20 Hct 29.8 % (40.0-50.0) L 09/16/18 06:20 MCV 88.2 fL (80-95) 09/16/18 06:20 MCH 28.4 pg (27.0-33.0) 09/16/18 06:20 MCHC 32.2 g/dL (32.0-36.0) 09/16/18 06:20 RDW 13.4 % (11.8-14.1) 09/16/18 06:20 Plt Count 200 x1000/uL (130-400) 09/16/18 06:20 MPV 10.5 fL (8.0-11.0) 09/16/18 06:20 Immature Gran % 0.0 09/16/18 06:20 Neutrophils % 49.0 09/16/18 06:20 Lymphocytes % 36.0 09/16/18 06:20 Monocytes % 9.0 09/16/18 06:20 Eosinophils % 0.0 09/16/18 06:20 Basophils % 0.0 09/16/18 06:20 Absolute Neutrophils 5.92 k/cumm (1.2-6.7) 09/16/18 06:20 Absolute Lymphocytes 5.07 k/cumm (1.2-3.4) H 09/16/18 06:20 Absolute Monocytes 1.09 k/cumm (0.11-0.7) H 09/16/18 06:20 Absolute Eosinophils 0.00 k/cumm (0.0-0.7) 09/16/18 06:20 Absolute Basophils 0.00 k/cumm (0.0-0.2) 09/16/18 06:20 Differential Comment Manual differential 09/16/18 06:20 Atypical Lymphocytes 6 09/16/18 06:20 RBC Morphology See below 09/16/18 06:20 Polychromasia Present 09/16/18 06:20 APTT 27.3 sec (21.0-31.4) 09/13/18 06:30 Sodium 140 mmol/L (136-145) 09/16/18 06:20 Potassium 3.7 mmol/L (3.5-5.1) 09/16/18 06:20 Chloride 101 mmol/L (98-107) 09/16/18 06:20 Carbon Dioxide 30.9 mmol/L (21.0-32.0) 09/16/18 06:20 Anion Gap 8.1 mmol/L (3-11) 09/16/18 06:20 BUN 22 mg/dL (7-18) H D 09/16/18 06:20 Creatinine 1.01 mg/dL (0.70-1.30) 09/16/18 06:20 Estimated GFR/1.73 m2 >= 60.00 (mL/min/1.73m2) 09/16/18 06:20 Glucose 136 mg/dL (70-100) H 09/16/18 06:20 Serum Osmolality 275 mOsm/kg (275-295) 09/13/18 06:50 Lactate 1.5 mmol/L (0.6-1.4) H 09/12/18 08:15 Calcium 8.3 mg/dL (8.5-10.1) L 09/16/18 06:20 Magnesium 1.7 mg/dL (1.8-2.4) L 09/14/18 17:10 Total Bilirubin 0.4 mg/dL (0.2-1.0) 09/12/18 06:45 AST 172 U/L (15-37) H 09/12/18 06:45 ALT 36 U/L (12-78) 09/12/18 06:45 Alkaline Phosphatase 76 U/L (46-116) 09/12/18 06:45 Troponin I 0.28 ng/mL (0.00-0.06) H 09/13/18 06:30 NT-Pro-B Natriuret Pep 3909 pg/mL (-299) H 09/12/18 12:05 Total Protein 7.3 g/dL (6.4-8.2) 09/12/18 06:45 Albumin 2.8 g/dL (3.4-5.0) L 09/12/18 06:45 Triglycerides 64 mg/dL (30-150) 09/12/18 06:45 Total Cholesterol 96 mg/dL (50-200) 09/12/18 06:45 LDL Cholesterol Direct 49 mg/dL (<100) 09/12/18 06:45 HDL Cholesterol 38 mg/dL (40-60) L 09/12/18 06:45 TSH 1.09 uIU/mL (0.358-3.74) 09/12/18 06:45 Free T4 1.19 ng/dL (0.76-1.46) 09/12/18 06:45 Urine Color Yellow (Yellow) 09/14/18 13:15 Urine Clarity Clear 09/14/18 13:15 Urine pH 6.0 (5-8) 09/14/18 13:15 Ur Specific [place] 1.010 (1.005-1.025) 09/14/18 13:15 Urine Protein 30 mg/dL (Negative) H 09/14/18 13:15 Urine Ketones Negative mg/dL (Negative) 09/14/18 13:15 Urine Blood Moderate (Negative) H 09/14/18 13:15 Urine Nitrite Negative (Negative) 09/14/18 13:15 Urine Bilirubin Negative (Negative) 09/14/18 13:15 Urine Urobilinogen 0.2 EU/dL (Up TO 0.2) 09/14/18 13:15 Ur Leukocyte Esterase Negative (Negative) 09/14/18 13:15 Urine RBC 3-5 (0-2) H 09/14/18 13:15 Urine WBC 0-2 HPF (0-5) 09/14/18 13:15 Ur Epithelial Cells Rare HPF (Negative) 09/14/18 13:15 Urine Crystals Negative HPF (Negative) 09/14/18 13:15 Urine Bacteria Negative HPF (Negative) 09/14/18 13:15 Urine Casts Negative LPF (Negative) 09/14/18 13:15 Urine Mucus Trace (Negative) 09/14/18 13:15 Urine Other Negative (Negative) 09/12/18 11:58 Ur Culture Indicated? No 09/14/18 13:15 Urine Osmolality 250 mosm/Kg (150-1150) 09/13/18 13:30 Ur Random Sodium 59 mmol/L 09/13/18 13:30 Urine Glucose Negative mg/dL (Negative) 09/14/18 13:15
--- NOTE | 2018-09-16 14:38 | W.NUTCONSULT ---
Date of service: 09/16/18 Time of Service: 14:39 Nutritional Consult ASSESSMENT: Mr. Mccain has had poor PO intake throughout his admission. He is eating 0-25% of his meals, mostly just bites. He is 72 and 63.2kg/139 lbs. His BMI is 17.9 kg/m2 consistent with underweight. His estimated energy needs for weight maintenance at this time are 1800 kcal/day (REE x 1.2). His estimated protein needs are 63g-75g/day (1.0-1.2 g/kg/day). He has had a 12.8% weight loss since admission which is significant. He is currently ordered for thiamin and magnesium. He agrees to whole milk with meals and he agrees to order as he typically eats at home, which is a large midday meal and a light supper, however he is only taking bites as noted. NUTRITIONAL DIAGNOSIS: Moderate malnutrition in the setting of acute illness as evidenced by poor PO intake for greater than 5 days as documented in the EHR as well as by significant weight loss. INTERVENTION: Will continue to visit Mr. Mccain prior to meals and to offer high calorie high protein nutrition therapy. Would consider nutrition support if PO intake does not improve and if his signs and symptoms of malnutrition worsen. Would also recommend initiation of a multivitamin with minerals to help utilization of the nutrients he does eat. MONITORING AND EVALUATION: Will monitor PO intake, weight, and his progress. Will remain available for further consult and/or recommendations for nutrition support such as NG feeding to help Mr. Mccain maintain an adequate nutritional status throughout his illness. Time Spent in Nutritional Counseling and Treatment: YELITZA
--- NOTE | 2018-09-16 17:27 | PDOC.CMPRO ---
- If Service Date Differs Date of service: 09/16/18 Time of Service: 17:27 Care Management Progress Note S/O: Ti remains in the ICU he completed his regimen of Tamiflu for treatment of influenza A. He is no longer receiving antibiotics, and his medication are being adjusted to control his heart rate. Ti will be discharged home with his caregiver, YOSELIN did review plan with Mary over the phone. She is requesting the Seroquel continue to help him with sleep at time of discharge. She reports that he does not sleep more than 4 hours a night. She feels that his sleep has improved and his demeanor has been better since starting the Seroquel. CM did review request with provider. Patient may benefit from PT/OT consult prior to discharge r/t prolonged hospital stay and acute illness. A: 63 year old male admitted to [facility] for Influenza/Rapid AFIB, elevated troponins. P: Ti will continue to be monitored and will return home with his caregiver with scheduled outpatient follow up appointments. Caregiver is aware of possible discharge on Sunday. CM will continue to offer support to patient, family, and care team regarding discharge planning and disposition.
--- NOTE | 2018-09-16 17:48 | CMPROGNOTE_ITS ---
- If Service Date Differs Date of service: 09/16/18 Time of Service: 17:27 Care Management Progress Note S/O: Ti remains in the ICU he completed his regimen of Tamiflu for treatment of influenza A. He is no longer receiving antibiotics, and his medication are being adjusted to control his heart rate. Ti will be discharged home with his caregiver, YOSELIN did review plan with Mary over the phone. She is requesting the Seroquel continue to help him with sleep at time of discharge. She reports that he does not sleep more than 4 hours a night. She feels that his sleep has improved and his demeanor has been better since starting the Seroquel. CM did review request with provider. Patient may benefit from PT/OT consult prior to discharge r/t prolonged hospital stay and acute illness. A: 63 year old male admitted to [facility] for Influenza/Rapid AFIB, elevated troponins. P: Ti will continue to be monitored and will return home with his caregiver with scheduled outpatient follow up appointments. Caregiver is aware of possible discharge on Sunday. CM will continue to offer support to patient, family, and care team regarding discharge planning and disposition.
[2018-09-16] MEDS: predniSONE 20 MG TAB 40 MG PO (21:32)
[2018-09-16] MEDS: QUEtiapine 25 MG TAB 12.5 MG PO (21:33)
[2018-09-16] MEDS: Apixaban 5 MG TAB PO (21:33)
[2018-09-16] MEDS: Atorvastatin 20 MG TAB PO (21:34)
[2018-09-17] VITALS (34 sets, daily range): BP systolic 102–156; BP diastolic 54–127; PULSE 54–89; RESP 13–23; TEMP 35.7–36.9; O2SAT 88–95
[2018-09-17] MEDS: Metoprolol 50 MG TAB PO (06:30)
[2018-09-17 08:50] LABS: Anion Gap 7.6 mmol/L (3-11); BUN 24 mg/dL (7-18); CO2 30.4 mmol/L (21.0-32.0); Calcium 8.8 mg/dL (8.5-10.1); Chloride 101 mmol/L (98-107); Glucose 227 mg/dL (70-100); Magnesium 1.7 mg/dL (1.8-2.4); Potassium 4.7 mmol/L (3.5-5.1); Sodium 139 mmol/L (136-145)
[2018-09-17] MEDS: Normal Saline Flush 10 ML SYR IVP (08:56)
[2018-09-17] MEDS: Pantoprazole 40 MG VIAL IVP (08:56)
[2018-09-17] MEDS: Gabapentin 100 MG CAP 200 MG PO ×3 (08:57→21:01)
[2018-09-17] MEDS: Aspirin 81 MG CHEW PO (08:58)
[2018-09-17] MEDS: Thiamine 100 MG TAB PO (08:58)
[2018-09-17] MEDS: predniSONE 20 MG TAB 40 MG PO (08:58)
[2018-09-17] MEDS: Apixaban 5 MG TAB PO ×2 (08:59→21:00)
[2018-09-17] MEDS: Metoprolol CR 100 MG TABCR PO (09:00)
[2018-09-17 09:10] LABS: Iron 29 ug/dL (50-175); Total Iron Binding Capacity 204 ug/dL (250-450); Transferrin Sat 14 % (20-55)
[2018-09-17 09:37] LABS: Ferritin 426 ng/mL (8-388); Folate 14.2 ng/mL (8.6-20.0); Vitamin B12 401 pg/mL (193-986)
[2018-09-17 09:39] LABS: Abs Immature Grans 0.07 k/cumm (0.0-0.09); Absolute Basophil Count 0.04 k/cumm (0.0-0.2); HCT 31.3 % (40.0-50.0); HGB 10.1 g/dL (13.5-17.5); Mean Corp. HGB Concentration 32.3 g/dL (32.0-36.0); Mean Corpuscular Hemoglobin 28.7 pg (27.0-33.0); Mean Corpuscular Volume 88.9 fL (80-95); Mean Platelet Volume 10.7 fL (8.0-11.0); Platelet Count 264 x1000/uL (130-400); RBC 3.52 m/cumm (4.50-6.00); RBC Distribution Width 13.8 % (11.8-14.1); White Blood Cell Count 7.64 k/cumm (4.4-10.8)
[2018-09-17] MEDS: Timolol 0.5% 5 ML BTL OP ×2 (09:40→21:01)
[2018-09-17 10:08] LABS: Absolute Lymphocyte Count 1.99 k/cumm (1.2-3.4); Absolute Neutrophil Count 5.42 k/cumm (1.2-6.7)
[2018-09-17 10:09] LABS: Absolute Eosinophil Count 0.08 k/cumm (0.0-0.7); Absolute Monocyte Count 0.15 k/cumm (0.11-0.7); Atypical Lymphocytes % 6
[2018-09-17 10:12] LABS: Diff Comment Manual Differential; Poikilocytes 1+; Polychromasia Present
[2018-09-17] MEDS: Magnesium Chloride 64 MG TABCR PO ×2 (10:39→21:01)
[2018-09-17] MEDS: Magnesium Oxide 400 MG TAB PO (10:40)
--- NOTE | 2018-09-17 12:53 | PDOC.CMPRO ---
- If Service Date Differs Date of service: 09/17/18 Time of Service: 12:53 Care Management Progress Note S/O: Ti remains in the ICU at this time. His caregiver Mary was in this morning, and has returned home at this time. CM spoke with Dr. Daugherty whom states that Ti will transition to a Med/Surg level of care today. No change in DC plan at this time. A: 63 year old male admitted to [facility] for Influenza/Rapid AFIB, elevated troponins. P: Ti will continue to be monitored and will return home with his caregiver with scheduled outpatient follow up appointments. Caregiver is aware of possible discharge on Sunday. CM will continue to offer support to patient, family, and care team regarding discharge planning and disposition.
--- NOTE | 2018-09-17 13:02 | CMPROGNOTE_ITS ---
- If Service Date Differs Date of service: 09/17/18 Time of Service: 12:53 Care Management Progress Note S/O: Ti remains in the ICU at this time. His caregiver Mary was in this morning, and has returned home at this time. CM spoke with Dr. Daugherty whom states that Ti will transition to a Med/Surg level of care today. No change in DC plan at this time. A: 63 year old male admitted to [facility] for Influenza/Rapid AFIB, elevated troponins. P: Ti will continue to be monitored and will return home with his caregiver with scheduled outpatient follow up appointments. Caregiver is aware of possible discharge on Sunday. CM will continue to offer support to patient, family, and care team regarding discharge planning and disposition.
--- NOTE | 2018-09-17 15:53 | W.PM.PROGNOT ---
Date of Service Date of service: 09/17/18 Time of Service: 15:53 Assessment and Plan (1) Elevated troponin: Current visit: Yes Status: Acute In setting of Influenza infection and Afib with RVR. Original EKG with nonspecific ST changes, ECHO with LVEF 55-60%, wall motion not commented on. Likely demand in patient with underlying CAD. May ultimately benefit from [facility] when stable, but currently still under treatment. As patient had refused heparin gtt, he remains on therapeutic lovenox, occasionaly refusing injection - currently going on 48 hours of treatment. Continue high potency statin, BB, and daily ASA -also received approximately 48 hours of therapeutic Lovenox (patient was refusing a heparin drip). Elevated troponin has down trended, last checked at 0.28 from a peak of just over 1. Patient will likely benefit from stress testing, possible diagnostic left heart catheterization. Will discuss further with cardiology once patient is stabilized. (2) Rapid atrial fibrillation: Current visit: Yes Status: Resolved Converted to sinus - had intermittently gone in and out of AFib, which may have been related to down titration of beta-alexsander therapy from every 6 hour dosing to every 12. Current heart rate well controlled on long-acting metoprolol and Cardizem. Will benefit from continued cardiac monitoring. CHADSVASc score calculated at 1 based on age of 63 -please note that Mr. Mccain has no evidence of heart failure, and no known diabetes, hypertension, prior CVA, or vascular disease. He may benefit from chronic anticoagulation if tolerated versus antiplatelet therapy with daily aspirin. (3) Anemia: Current visit: Yes Status: Chronic Initial presenting hemoglobin of 14, values have dropped down to the 10-11 range previously, down to 9.6 yesterday. Currently at 10.1. Mr. Mccain may benefit from lifelong anticoagulation given recurrence of AFib with a CHADSVASc score of only 1 with age is the only qualifier, but if anticoagulation is not tolerated may do well with antiplatelet therapy as well. Current anemia is normocytic, with studies indicating anemia of chronic disease. Stool for occult blood still pending. For now initiate apixaban and monitor hemoglobin carefully. (4) Influenza A: Current visit: Yes Status: Acute Received 5 day course of Oseltamivir. Patient now afebrile for approximately 48 hours. CXR, urinalysis checked and negative. Blood Cultures drawn - positive in only one set for coag negative staph, which may be contaminant. Continue to monitor. (5) Tobacco abuse: Current visit: Yes Status: Chronic Noted. Continue NRT in the form of nicotrol. (6) Encephalopathy chronic: Current visit: Yes Status: Chronic Wernicke's encephalopathy suspected, with potential acute delirium in setting of infection and hospitalization. Confusion is apparently not patient's baseline. No acute CVA on MRI/MRA. Will continue to work with patient's caregiver and nursing to ensure compliance with above treatment plan, and monitor symptoms closely. Discontinue standing low dose Seroquel. (7) Hyponatremia: Current visit: Yes Status: Acute Vastly improved from initial value with Lasix - likely secondary to volume overload. Currently remains resolved. (8) DVT prophylaxis: Current visit: Yes Status: Acute Currently on therapeutic Apixaban. PPI therapy added for GI prophylaxis as well. Subjective Interval history since last seen: This is a 63-year-old man with a prior medical history significant for paroxysmal Afib as well as daily tobacco use, admitted from [facility] emergency department on 09/11 with a diagnosis of influenza. Mr. Mccain has a past medical history significant for paroxysmal atrial fibrillation, dyslipidemia, daily tobacco abuse, and a history of drug and alcohol abuse in remission. He lives in a community long-term in [place]. The patient was noted to have of a fever of 101 on the day prior to his admission, with a worsening cough and reported weakness. His caregiver has been sick with pneumonia, and he had had sick contacts. In the emergency Department he was found to have a rapid heart rate in the 160's and in AFib. Rapid flu swab positive for influenza A. His troponin was elevated at 0.67, later trended to 1.09. His medical regimen was optimized for likely demand ischemia. The patient was confused previous, intermittently tearing off telemetry, refusing medications, and threatening to staff. This is apparently not his baseline per discussion with his caregiver this morning. He was started on low dose Seroquel and reportedly better since then but more somnolent. His seroquel has now been discontinued. He was febrile after an initial 2-day course of no fevers, but without any elevation in temperature over the course of the the last 72 hours. No other events reported. Exam Narrative Exam Narrative: General: Patient appears comfortable, Awake and alert, NAD Neck: Supple CV: Regular, nontachycardic, S1S2, No rubs, murmurs, or gallops. Pulmonary: Clear to auscultation bilaterally with essential resolution of bibasilar crackles. No wheezing or rhonchi. Abdomen: + Bowel Sounds, soft, nontender, nondistended Vascular: No lower extremity edema Psych: Normal mood and affect. Objective Objective Clinical Data: Abnormal lab results 09/17/18 09/17/18 09/17/18 Range/Units 06:35 06:35 06:35 RBC (4.50-6.00) m/cumm Hgb (13.5-17.5) g/dL Hct (40.0-50.0) % BUN 24 H (7-18) mg/dL Glucose 227 H D (70-100) mg/dL Magnesium 1.7 L (1.8-2.4) mg/dL Iron 29 L (50-175) ug/dL TIBC 204 L (250-450) ug/dL Transferrin % Sat 14 L (20-55) % Ferritin 426 H (8-388) ng/mL 09/17/18 Range/Units 06:35 RBC 3.52 L (4.50-6.00) m/cumm Hgb 10.1 L (13.5-17.5) g/dL Hct 31.3 L (40.0-50.0) % BUN (7-18) mg/dL Glucose (70-100) mg/dL Magnesium (1.8-2.4) mg/dL Iron (50-175) ug/dL TIBC (250-450) ug/dL Transferrin % Sat (20-55) % Ferritin (8-388) ng/mL Vital Signs Temperature 35.9 C L 09/17/18 14:09 Temperature Source Temporal Artery Scan 09/17/18 14:09 Pulse 75 09/17/18 12:07 Pulse 63 09/17/18 14:00 Respiratory Rate 15 09/17/18 14:00 Respiratory Effort 09/17/18 12:06 Respiratory Depth Normal 09/17/18 12:06 Respiratory Pattern Normal 09/17/18 12:06 Blood Pressure 122/64 09/17/18 12:07 Blood Pressure Mean 77 09/17/18 12:07 Blood Pressure Position Sitting 09/17/18 12:06 Pulse Oximetry 90 L 09/17/18 14:09 Oxygen Delivery Method Room Air 09/17/18 14:09 Oxygen Flow Rate 0 09/17/18 14:09 Pain Level 0 09/17/18 14:09 Comment 09/13/18 07:07 Intake & Output 09/16/18 09/17/18 09/17/18 23:59 11:59 23:59 Intake Total 471 / 501 770 / 770 Output Total 300 / 525 275 / 450 175 / 450 Balance 171 / -24 495 / 320 -175 / 320 Weight 65.3 kg Intake: IV 250 / 280 20 / 20 Oral 221 / 221 750 / 750 Output: Urine 300 / 525 275 / 450 175 / 450 Other: Urine Color Straw Light Ellyn Dark Ellyn Urine Appearance Clear Clear Clear Urine Odor Strong Normal Strong Comment Voids to urinal Voids to urinal Voids to urinal; 125ml ellyn Qshift Voiding Methods Urinal Urinal Urinal Laboratory Results WBC 7.64 k/cumm (4.4-10.8) D 09/17/18 06:35 RBC 3.52 m/cumm (4.50-6.00) L 09/17/18 06:35 Hgb 10.1 g/dL (13.5-17.5) L 09/17/18 06:35 Hct 31.3 % (40.0-50.0) L 09/17/18 06:35 MCV 88.9 fL (80-95) 09/17/18 06:35 MCH 28.7 pg (27.0-33.0) 09/17/18 06:35 MCHC 32.3 g/dL (32.0-36.0) 09/17/18 06:35 RDW 13.8 % (11.8-14.1) 09/17/18 06:35 Plt Count 264 x1000/uL (130-400) 09/17/18 06:35 MPV 10.7 fL (8.0-11.0) 09/17/18 06:35 Immature Gran % 0.0 09/17/18 06:35 Neutrophils % 71.0 09/17/18 06:35 Lymphocytes % 20.0 09/17/18 06:35 Monocytes % 2.0 09/17/18 06:35 Eosinophils % 1.0 09/17/18 06:35 Basophils % 0.0 09/17/18 06:35 Absolute Neutrophils 5.42 k/cumm (1.2-6.7) 09/17/18 06:35 Absolute Lymphocytes 1.99 k/cumm (1.2-3.4) 09/17/18 06:35 Absolute Monocytes 0.15 k/cumm (0.11-0.7) 09/17/18 06:35 Absolute Eosinophils 0.08 k/cumm (0.0-0.7) 09/17/18 06:35 Absolute Basophils 0.04 k/cumm (0.0-0.2) 09/17/18 06:35 Differential Comment Manual differential 09/17/18 06:35 Atypical Lymphocytes 6 09/17/18 06:35 RBC Morphology See below 09/17/18 06:35 Polychromasia Present 09/17/18 06:35 Poikilocytosis 1+ 09/17/18 06:35 APTT 27.3 sec (21.0-31.4) 09/13/18 06:30 Sodium 139 mmol/L (136-145) 09/17/18 06:35 Potassium 4.7 mmol/L (3.5-5.1) D 09/17/18 06:35 Chloride 101 mmol/L (98-107) 09/17/18 06:35 Carbon Dioxide 30.4 mmol/L (21.0-32.0) 09/17/18 06:35 Anion Gap 7.6 mmol/L (3-11) 09/17/18 06:35 BUN 24 mg/dL (7-18) H 09/17/18 06:35 Creatinine 1.00 mg/dL (0.70-1.30) 09/17/18 06:35 Estimated GFR/1.73 m2 >= 60.00 (mL/min/1.73m2) 09/17/18 06:35 Glucose 227 mg/dL (70-100) H D 09/17/18 06:35 Serum Osmolality 275 mOsm/kg (275-295) 09/13/18 06:50 Lactate 1.5 mmol/L (0.6-1.4) H 09/12/18 08:15 Calcium 8.8 mg/dL (8.5-10.1) 09/17/18 06:35 Magnesium 1.7 mg/dL (1.8-2.4) L 09/17/18 06:35 Iron 29 ug/dL (50-175) L 09/17/18 06:35 TIBC 204 ug/dL (250-450) L 09/17/18 06:35 Transferrin % Sat 14 % (20-55) L 09/17/18 06:35 Ferritin 426 ng/mL (8-388) H 09/17/18 06:35 Total Bilirubin 0.4 mg/dL (0.2-1.0) 09/12/18 06:45 AST 172 U/L (15-37) H 09/12/18 06:45 ALT 36 U/L (12-78) 09/12/18 06:45 Alkaline Phosphatase 76 U/L (46-116) 09/12/18 06:45 Troponin I 0.28 ng/mL (0.00-0.06) H 09/13/18 06:30 NT-Pro-B Natriuret Pep 3909 pg/mL (-299) H 09/12/18 12:05 Total Protein 7.3 g/dL (6.4-8.2) 09/12/18 06:45 Albumin 2.8 g/dL (3.4-5.0) L 09/12/18 06:45 Triglycerides 64 mg/dL (30-150) 09/12/18 06:45 Total Cholesterol 96 mg/dL (50-200) 09/12/18 06:45 LDL Cholesterol Direct 49 mg/dL (<100) 09/12/18 06:45 HDL Cholesterol 38 mg/dL (40-60) L 09/12/18 06:45 Vitamin B12 401 pg/mL (193-986) 09/17/18 06:35 Folate 14.2 ng/mL (8.6-20.0) 09/17/18 06:35 TSH 1.09 uIU/mL (0.358-3.74) 09/12/18 06:45 Free T4 1.19 ng/dL (0.76-1.46) 09/12/18 06:45 Urine Color Yellow (Yellow) 09/14/18 13:15 Urine Clarity Clear 09/14/18 13:15 Urine pH 6.0 (5-8) 09/14/18 13:15 Ur Specific [place] 1.010 (1.005-1.025) 09/14/18 13:15 Urine Protein 30 mg/dL (Negative) H 09/14/18 13:15 Urine Ketones Negative mg/dL (Negative) 09/14/18 13:15 Urine Blood Moderate (Negative) H 09/14/18 13:15 Urine Nitrite Negative (Negative) 09/14/18 13:15 Urine Bilirubin Negative (Negative) 09/14/18 13:15 Urine Urobilinogen 0.2 EU/dL (Up TO 0.2) 09/14/18 13:15 Ur Leukocyte Esterase Negative (Negative) 09/14/18 13:15 Urine RBC 3-5 (0-2) H 09/14/18 13:15 Urine WBC 0-2 HPF (0-5) 09/14/18 13:15 Ur Epithelial Cells Rare HPF (Negative) 09/14/18 13:15 Urine Crystals Negative HPF (Negative) 09/14/18 13:15 Urine Bacteria Negative HPF (Negative) 09/14/18 13:15 Urine Casts Negative LPF (Negative) 09/14/18 13:15 Urine Mucus Trace (Negative) 09/14/18 13:15 Urine Other Negative (Negative) 09/12/18 11:58 Ur Culture Indicated? No 09/14/18 13:15 Urine Osmolality 250 mosm/Kg (150-1150) 09/13/18 13:30 Ur Random Sodium 59 mmol/L 09/13/18 13:30 Urine Glucose Negative mg/dL (Negative) 09/14/18 13:15
[2018-09-17] MEDS: Atorvastatin 20 MG TAB PO (21:01)
[2018-09-18] VITALS (26 sets, daily range): BP systolic 105–151; BP diastolic 50–83; PULSE 51–81; RESP 12–24; TEMP 36.6–37.1; O2SAT 88–98
[2018-09-18 07:15] LABS: HCT 30.1 % (40.0-50.0); HGB 9.6 g/dL (13.5-17.5); Mean Corp. HGB Concentration 31.9 g/dL (32.0-36.0); Mean Corpuscular Hemoglobin 28.1 pg (27.0-33.0); Mean Platelet Volume 10.3 fL (8.0-11.0); Platelet Count 355 x1000/uL (130-400); RBC 3.42 m/cumm (4.50-6.00); RBC Distribution Width 13.9 % (11.8-14.1); White Blood Cell Count 18.39 k/cumm (4.4-10.8)
[2018-09-18 07:27] LABS: BUN 29 mg/dL (7-18); CREATININE 0.99 mg/dL (0.70-1.30); Calcium 8.6 mg/dL (8.5-10.1); Chloride 104 mmol/L (98-107); Glucose 200 mg/dL (70-100); Magnesium 1.6 mg/dL (1.8-2.4); Potassium 4.1 mmol/L (3.5-5.1); Sodium 141 mmol/L (136-145)
[2018-09-18 07:47] LABS: Absolute Monocyte Count 0.92 k/cumm (0.11-0.7); Absolute Neutrophil Count 12.87 k/cumm (1.2-6.7); Atypical Lymphocytes % 3; Basophilic Stippling Present; Diff Comment Manual Differential; Polychromasia Present
[2018-09-18 08:10] LABS: Hemoglobin A1C 7.3 % (4.5-6.2)
--- NOTE | 2018-09-18 09:13 | PDOC.CMPRO ---
Care Management Progress Note S/O: Ti was sitting up on the side of his bed when CM met with him. He was more alert and verbal; RN Rowena attributed this to Seroquel being discontinued. Anticipate Ti will transfer to MED/SURG level of care today per MD. He continues to be monitored as his WBC went up, and his steroids are being weaned. He will have PT consult to inform discharge needs. A: 63 year old male admitted to [facility] for Influenza/Rapid AFIB, elevated troponins. P: Ti will continue to be monitored and will return home with his caregiver with scheduled outpatient follow up appointments. CM will continue to offer support to patient, family, and care team regarding discharge planning and disposition.
--- NOTE | 2018-09-18 09:16 | CMPROGNOTE_ITS ---
Care Management Progress Note S/O: Ti was sitting up on the side of his bed when CM met with him. He was more alert and verbal; RN Rowena attributed this to Seroquel being discontinued. Anticipate Ti will transfer to MED/SURG level of care today per MD. He continues to be monitored as his WBC went up, and his steroids are being weaned. He will have PT consult to inform discharge needs. A: 63 year old male admitted to [facility] for Influenza/Rapid AFIB, elevated troponins. P: Ti will continue to be monitored and will return home with his caregiver w ith scheduled outpatient follow up appointments. CM will continue to offer support to patient, family, and care team regarding discharge planning and disposition.
[2018-09-18] MEDS: Metoprolol CR 100 MG TABCR PO (09:38)
[2018-09-18] MEDS: Apixaban 5 MG TAB PO ×2 (09:38→20:21)
[2018-09-18] MEDS: Aspirin 81 MG CHEW PO (09:39)
[2018-09-18] MEDS: Thiamine 100 MG TAB PO (09:40)
[2018-09-18] MEDS: Pantoprazole 40 MG VIAL IVP (09:42)
[2018-09-18] MEDS: predniSONE 20 MG TAB 40 MG PO ×2 (09:42→20:21)
[2018-09-18] MEDS: Gabapentin 100 MG CAP 200 MG PO ×3 (09:42→20:22)
[2018-09-18] MEDS: MAGNESIUM SULFATE 2 GM/50 ML BAG IVPB (09:59)
[2018-09-18] MEDS: Timolol 0.5% 5 ML BTL OP ×2 (10:01→20:34)
[2018-09-18] MEDS: Normal Saline Flush 10 ML SYR IVP ×2 (10:02→13:28)
[2018-09-18] MEDS: Magnesium Chloride 64 MG TABCR PO ×2 (10:02→20:22)
[2018-09-18] MEDS: Acetaminophen 325 MG TAB PO (13:28)
--- NOTE | 2018-09-18 13:57 | DI.RAD_ITS ---
SYMPTOMS/DIAGNOSIS: HYPOXIA POST-INFLUENZA AP AND LATERAL CHEST: Comparison is made with August,. Leads overlie the chest. The heart size remains normal. The lungs are clear. No pneumothorax is seen. Mid thoracic compression fractures are again noted. IMPRESSION: No acute abnormality.
--- NOTE | 2018-09-18 16:01 | PGE_ITS ---
Date of Service Date of service: 09/18/18 Time of Service: 15:58 Assessment and Plan (1) Influenza A: Current visit: Yes Status: Acute Received 5 day course of Oseltamivir. Patient remains afebrile. CXR, urinalysis checked and negative. Blood Cultures drawn - positive in only one set only for Staph Epidermidis, likely contaminant. Patient with mild area of crackles today on lung exam and minimal hypoxia, along with elevated WBC- CXR repeated and negative. Consider Incentive Spirometry, PT. (2) Elevated troponin: Current visit: Yes Status: Acute In setting of Influenza infection and Afib with RVR. Original EKG with nonspecific ST changes, ECHO with LVEF 55-60%, wall motion not commented on. Likely demand in patient with underlying CAD. May ultimately benefit from LHC when stable, but currently still under treatment. As patient had refused heparin gtt, he remains on therapeutic lovenox, occasionaly refusing injection - currently going on 48 hours of treatment. Continue high potency statin, BB, and daily ASA -also received approximately 48 hours of therapeutic Lovenox (patient was refusing a heparin drip). Elevated troponin has down trended, last checked at 0.28 from a peak of just over 1. Patient will likely benefit from stress kalpana ting, possible diagnostic left heart catheterization. Will discuss further with cardiology once patient is stabilized. (3) Rapid atrial fibrillation: Current visit: Yes Status: Resolved Converted to sinus - had intermittently gone in and out of AFib, which may have been related to down titration of beta-alexsander therapy from every 6 hour dosing to every 12. Current heart rate well controlled on long-acting metoprolol and Cardizem. Will benefit from continued cardiac monitoring. Consider titration as outpatient to discontinue one agent or the other long-term. HgA1c 7.3%. CHADSVASc score calculated at 2 based on age of 63 and new diagnosis of DM - continue anticoagulation with Apixaban. (4) Anemia: Current visit: Yes Status: Chronic Initial presenting hemoglobin of 14, values have dropped down to the 10-11 range previously, down to 9.6. Mr. Mccain may benefit from lifelong anticoagulation given recurrence of AFib with a CHADSVASc score of 2, if tolerated. Current anemia is normocytic, with studies indicating anemia of chronic disease. Stool for occult blood negative today. (5) Tobacco abuse: Current visit: Yes Status: Chronic Noted. Continue NRT in the form of nicotrol. (6) Encephalopathy chronic: Current visit: Yes Status: Chronic Wernicke's encephalopathy suspected, with potential acute delirium in setting of infection and hospitalization. Confusion is apparently not patient's baseline. No acute CVA on MRI/MRA. Appears back to baseline. (7) Hyponatremia: Current visit: Yes Status: Acute Vastly improved from initial value with Lasix - likely secondary to volume overload. Currently remains resolved. (8) DVT prophylaxis: Current visit: Yes Status: Acute Currently on therapeutic Apixaban. PPI therapy added for GI prophylaxis as well. Subjective Interval history since last seen: This is a 63-year-old man with a prior medical history significant for paroxysmal Afib as well as daily tobacco use, admitted from [facility] emergency department on 09/11 with a diagnosis of influenza. Mr. Mccain has a past medical history significant for paroxysmal atrial fibrillation, dyslipidemia, daily tobacco abuse, and a history of drug and alcohol abuse in remission. He lives in a community half-way in [place]. The patient was noted to have of a fever of 101 on the day prior to his admission, with a worsening cough and reported weakness. His caregiver has been sick with pneumonia, and he had had sick contacts. In the emergency Department he was found to have a rapid heart rate in the 160's and in AFib. Rapid flu swab po sitive for influenza A. His troponin was elevated at 0.67, later trended to 1.09. His medical regimen was optimized for likely demand ischemia. The patient was confused previously, treated with a short course of low dose seroquel and continuation of treatment of his acute illness. He now appears to be at his baseline, with seroquel discontinued due to somnolence. His seroquel has now been discontinued. His WBC has increased significantly overnight, but he remains afebrile. Also with mild hypoxia. No other events reported. Exam Narrative Exam Narrative: General: Patient appears comfortable, Awake and alert, NAD Neck: Supple CV: Regular, nontachycardic, S1S2, No rubs, murmurs, or gallops. Pulmonary: Clear to auscultation bilaterally with minimal crackles at the left lateral base. No wheezing or rhonchi. Decreased Breath sounds diffusely. Abdomen: + Bowel Sounds, soft, nontender, nondistended Vascular: No lower extremity edema Psych: Normal mood and affect. Objective Objective Clinical Data: Abnormal lab results 09/18/18 09/18/18 09/18/18 Range/Units 06:45 06:45 06:45 WBC 18.39 H D (4.4-10.8) k/cumm RBC 3.42 L (4.50-6.00) m/cumm Hgb 9.6 L (13.5-17.5) g/dL Hct 30.1 L (40.0-50.0) % MCHC 31.9 L (32.0-36.0) g/dL Absolute Neutrophils 12.87 H (1.2-6.7) k/cumm Absolute Lymphocytes 4.60 H (1.2-3.4) k/cumm Absolute Monocytes 0.92 H (0.11-0.7) k/cumm BUN 29 H (7-18) mg/dL Glucose 200 H (70-100) mg/dL Hemoglobin A1c 7.3 H (4.5-6.2) % Magnesium 1.6 L (1.8-2.4) mg/dL Vital Signs Temperature 37.1 C 09/18/18 12:21 Temperature Source Temporal Artery Scan 09/18/18 12:21 Pulse 72 09/18/18 12:01 Pulse 73 09/18/18 12:01 Respiratory Rate 15 09/18/18 12:01 Respiratory Effort 09/18/18 09:25 Respiratory Depth Normal 09/18/18 09:25 Respiratory Pattern Normal 09/18/18 09:25 Blood Pressure 128/59 L 09/18/18 12:01 Blood Pressure Mean 74 09/18/18 12:01 Blood Pressure Position Supine 09/18/18 09:25 Pulse Oximetry 90 L 09/18/18 12:21 Oxygen Delivery Method Room Air 09/18/18 12:21 Oxygen Flow Rate 0 09/18/18 12:21 Pain Level 4 09/18/18 13:28 Comment 09/18/18 12:21 Intake & Output 09/17/18 09/18/18 09/18/18 23:59 11:59 23:59 Intake Total 700 / 1470 420 / 660 240 / 660 Output Total 175 / 450 500 / 600 100 / 600 Balance 525 / 1020 -80 / 60 140 / 60 Weight 64.3 kg Intake: IV Oral 700 / 1450 400 / 640 240 / 640 Output: Urine 175 / 450 500 / 600 100 / 600 Other: Urine Color Dark Darcy Light Darcy Dark Darcy Urine Appearance Clear Clear Clear Urine Odor Strong Strong Comment Pt voids to urinal, occ. dribbling/incontinence. meatal care Voiding Methods Urinal Urinal Laboratory Results WBC 18.39 k/cumm (4.4-10.8) H D 09/18/18 06:45 RBC 3.42 m/cumm (4.50-6.00) L 09/18/18 06:45 Hgb 9.6 g/dL (13.5-17.5) L 09/18/18 06:45 Hct 30.1 % (40.0-50.0) L 09/18/18 06:45 MCV 88.0 fL (80-95) 09/18/18 06:45 MCH 28.1 pg (27.0-33.0) 09/18/18 06:45 MCHC 31.9 g/dL (32.0-36.0) L 09/18/18 06:45 RDW 13.9 % (11.8-14.1) 09/18/18 06:45 Plt Count 355 x1000/uL (130-400) 09/18/18 06:45 MPV 10.3 fL (8.0-11.0) 09/18/18 06:45 Immature Gran % 0.0 09/18/18 06:45 Neutrophils % 70.0 09/18/18 06:45 Lymphocytes % 22.0 09/18/18 06:45 Monocytes % 5.0 09/18/18 06:45 Eosinophils % 0.0 09/18/18 06:45 Basophils % 0.0 09/18/18 06:45 Absolute Neutrophils 12.87 k/cumm (1.2-6.7) H 09/18/18 06:45 Absolute Lymphocytes 4.60 k/cumm (1.2-3.4) H 09/18/18 06:45 Absolute Monocytes 0.92 k/cumm (0.11-0.7) H 09/18/18 06:45 Absolute Eosinophils 0.00 k/cumm (0.0-0.7) 09/18/18 06:45 Absolute Basophils 0.00 k/cumm (0.0-0.2) 09/18/18 06:45 Differential Comment Manual differential 09/18/18 06:45 Atypical Lymphocytes 3 09/18/18 06:45 RBC Morphology See below 09/18/18 06:45 Polychromasia Present 09/18/18 06:45 Poikilocytosis 1+ 09/17/18 06:35 Basophilic Stippling Present 09/18/18 06:45 APTT 27.3 sec (21.0-31.4) 09/13/18 06:30 Sodium 141 mmol/L (136-145) 09/18/18 06:45 Potassium 4.1 mmol/L (3.5-5.1) 09/18/18 06:45 Chloride 104 mmol/L (98-107) 09/18/18 06:45 Carbon Dioxide 28.0 mmol/L (21.0-32.0) 09/18/18 06:45 Anion Gap 9.0 mmol/L (3-11) 09/18/18 06:45 BUN 29 mg/dL (7-18) H 09/18/18 06:45 Creatinine 0.99 mg/dL (0.70-1.30) 09/18/18 06:45 Estimated GFR/1.73 m2 >= 60.00 (mL/min/1.73m2) 09/18/18 06:45 Glucose 200 mg/dL (70-100) H 09/18/18 06:45 Hemoglobin A1c 7.3 % (4.5-6.2) H 09/18/18 06:45 Serum Osmolality 275 mOsm/kg (275-295) 09/13/18 06:50 Lactate 1.5 mmol/L (0.6-1.4) H 09/12/18 08:15 Calcium 8.6 mg/dL (8.5-10.1) 09/18/18 06:45 Magnesium 1.6 mg/dL (1.8-2.4) L 09/18/18 06:45 Iron 29 ug/dL (50-175) L 09/17/18 06:35 TIBC 204 ug/dL (250-450) L 09/17/18 06:35 Transferrin % Sat 14 % (20-55) L 09/17/18 06:35 Ferritin 426 ng/mL (8-388) H 09/17/18 06:35 Total Bilirubin 0.4 mg/dL (0.2-1.0) 09/12/18 06:45 AST 172 U/L (15-37) H 09/12/18 06:45 ALT 36 U/L (12-78) 09/12/18 06:45 Alkaline Phosphatase 76 U/L (46-116) 09/12/18 06:45 Troponin I 0.28 ng/mL (0.00-0.06) H 09/13/18 06:30 NT-Pro-B Natriuret Pep 3909 pg/mL (-299) H 09/12/18 12:05 Total Protein 7.3 g/dL (6.4-8.2) 09/12/18 06:45 Albumin 2.8 g/dL (3.4-5.0) L 09/12/18 06:45 Triglycerides 64 mg/dL (30-150) 09/12/18 06:45 Total Cholesterol 96 mg/dL (50-200) 09/12/18 06:45 LDL Cholesterol Direct 49 mg/dL (<100) 09/12/18 06:45 HDL Cholesterol 38 mg/dL (40-60) L 09/12/18 06:45 Vitamin B12 401 pg/mL (193-986) 09/17/18 06:35 Folate 14.2 ng/mL (8.6-20.0) 09/17/18 06:35 TSH 1.09 uIU/mL (0.358-3.74) 09/12/18 06:45 Free T4 1.19 ng/dL (0.76-1.46) 09/12/18 06:45 Urine Color Yellow (Yellow) 09/14/18 13:15 Urine Clarity Clear 09/14/18 13:15 Urine pH 6.0 (5-8) 09/14/18 13:15 Ur Specific [place] 1.010 (1.005-1.025) 09/14/18 13:15 Urine Protein 30 mg/dL (Negative) H 09/14/18 13:15 Urine Ketones Negative mg/dL (Negative) 09/14/18 13:15 Urine Blood Moderate (Negative) H 09/14/18 13:15 Urine Nitrite Negative (Negative) 09/14/18 13:15 Urine Bilirubin Negative (Negative) 09/14/18 13:15 Urine Urobilinogen 0.2 EU/dL (Up TO 0.2) 09/14/18 13:15 Ur Leukocyte Esterase Negative (Negative) 09/14/18 13:15 Urine RBC 3-5 (0-2) H 09/14/18 13:15 Urine WBC 0-2 HPF (0-5) 09/14/18 13:15 Ur Epithelial Cells Rare HPF (Negative) 09/14/18 13:15 Urine Crystals Negative HPF (Negative) 09/14/18 13:15 Urine Bacteria Negative HPF (Negative) 09/14/18 13:15 Urine Casts Negative LPF (Negative) 09/14/18 13:15 Urine Mucus Trace (Negative) 09/14/18 13:15 Urine Other Negative (Negative) 09/12/18 11:58 Ur Culture Indicated? No 09/14/18 13:15 Urine Osmolality 250 mosm/Kg (150-1150) 09/13/18 13:30 Ur Random Sodium 59 mmol/L 09/13/18 13:30 Urine Glucose Negative mg/dL (Negative) 09/14/18 13:15 Objective Narrative Objective Narrative: Exam(s) a RAD:XR chest 2V PA & lateral SYMPTOMS/DIAGNOSIS: HYPOXIA POST-INFLUENZA AP AND LATERAL CHEST: Comparison is made with August,. Leads overlie the chest. The heart size remains normal. The lungs are clear. No pneumothorax is seen. Mid thoracic compression fractures are again noted. IMPRESSION: No acute abnormality.
[2018-09-18] MEDS: Atorvastatin 20 MG TAB PO (20:21)
[2018-09-19] VITALS (24 sets, daily range): BP systolic 103–164; BP diastolic 54–83; PULSE 53–82; RESP 14–25; TEMP 36.3–37.1; O2SAT 90–95
[2018-09-19] MEDS: Normal Saline Flush 10 ML SYR IVP ×3 (06:21→22:01)
[2018-09-19 07:24] LABS: Abs Immature Grans 0.29 k/cumm (0.0-0.09); Absolute Basophil Count 0.02 k/cumm (0.0-0.2); Absolute Lymphocyte Count 3.04 k/cumm (1.2-3.4); Absolute Monocyte Count 1.04 k/cumm (0.11-0.7); Basophils % 0.1; HCT 30.6 % (40.0-50.0); HGB 9.6 g/dL (13.5-17.5); Immature Grans % 1.5; Mean Corp. HGB Concentration 31.4 g/dL (32.0-36.0); Mean Corpuscular Hemoglobin 28.2 pg (27.0-33.0); Monocytes % 5.5; Neutrophils % 76.9; Platelet Count 401 x1000/uL (130-400); RBC Distribution Width 14.6 % (11.8-14.1); White Blood Cell Count 18.99 k/cumm (4.4-10.8)
--- NOTE | 2018-09-19 08:54 | PDOC.CMPRO ---
Care Management Progress Note S/O: Ti was working with PT when CM met with him. He was standing in place next to his bedside. He continues to improve medically and return to his baseline mentally as well. CM will continue to follow. A: 63 year old male admitted to [facility] for Influenza/Rapid AFIB, elevated troponins. P: Ti will continue to be monitored and will return home with his caregiver with scheduled outpatient follow up appointments. Anticipate with new diagnosis of DM; follow up with diabetic education, as well as outpatient stress test due to need for possible diagnostic left heart catheterization per MD. Anticipate continued anticoagulation; possibly Apixiban as well as cardiac monitoring-?Deandra. CM will continue to offer support to patient, family, and care team regarding discharge planning and disposition.
--- NOTE | 2018-09-19 09:00 | CMPROGNOTE_ITS ---
Care Management Progress Note S/O: Ti was working with PT when CM met with him. He was standing in place next to his bedside. He continues to improve medically and return to his baseline mentally as well. CM will continue to follow. A: 63 year old male admitted to [facility] for Influenza/Rapid AFIB, elevated troponins. P: Ti will continue to be monitored and will return home with his caregiver with scheduled outpatient follow up appointments. Anticipate with new diagnosis of DM; follow up with diabetic education, as well as outpatient stress test due to need for possible diagnostic left heart catheterization per MD. Anticipate continued anticoagulation; possibly Apixiban as well as cardiac monitoring- ?Deandra. CM will continue to offer support to patient, family, and care team regarding discharge planning and disposition.
[2018-09-19 09:16] LABS: Anion Gap 7.9 mmol/L (3-11); BUN 33 mg/dL (7-18); CO2 29.1 mmol/L (21.0-32.0); CREATININE 1.12 mg/dL (0.70-1.30); Calcium 8.8 mg/dL (8.5-10.1); Chloride 104 mmol/L (98-107); Glucose 308 mg/dL (70-100); Magnesium 1.8 mg/dL (1.8-2.4); Potassium 4.4 mmol/L (3.5-5.1); Sodium 141 mmol/L (136-145)
[2018-09-19] MEDS: Metoprolol CR 100 MG TABCR PO (09:48)
[2018-09-19] MEDS: Aspirin 81 MG CHEW PO (09:49)
[2018-09-19] MEDS: Thiamine 100 MG TAB PO (09:49)
[2018-09-19] MEDS: Gabapentin 100 MG CAP 200 MG PO ×3 (09:49→20:03)
[2018-09-19] MEDS: predniSONE 20 MG TAB 40 MG PO (09:49)
[2018-09-19] MEDS: Apixaban 5 MG TAB PO ×2 (09:49→20:03)
[2018-09-19] MEDS: Pantoprazole 40 MG VIAL IVP (10:04)
[2018-09-19] MEDS: Timolol 0.5% 5 ML BTL OP ×2 (10:11→20:03)
--- NOTE | 2018-09-19 10:40 | PT.INIE ---
Date of service: 09/19/18 Time of Service: 10:40 PT Notes Inpatient Physical Therapy Evaluation Date: 09/19/2018 Referring Doctor: Deepak Daugherty MD PT Orders: PT CONSULT: a Precautions: Fall precautions Patient Profile/Admitting Diagnosis: Patient is a 63-year-old male admitted with influenza A, atrial fibrillation PMHX: Anemia, encephalopathy, paroxysmal atrial fibrillation, glaucoma, hypercholesterolemia, alcohol abuse in the past, substance abuse in the past, tobacco abuse Social History/Home Situation: Resident and community [facility] in [place] has caregivers that assist him in this setting, caregiver present in room at time of evaluation. Per caregiver baseline mobility independent gait without assistive device, independent with ADLs. Equipment Owned/DME: Cane, FWW, commode, Subjective: Patient is sitting in chair watching TV, eating, visiting with caregiver. Alert and oriented to place and situation and agreeable to PT consult. Objective: General Observation: Telemetry Mental Status: A and O times place, situation, name Pain: No complaints of pain Vital Signs: On room air O2 sats at rest 96%, with gait 94% Bed Mobility/Transfers: Sit to stand: Independent with FWW Stand to sit: Independent Gait: SBA with FWW 60 feet x2, slow steady step through gait pattern, decreased stride length, decreased calos. Patient without shortness of breath with exertion O2 sats remained 94% on room air. Patient returned to room and up in chair to finish a meal. Balance: Static Sitting: Normal Dynamic Sitting: Normal Static Standing: Fair Dynamic Standing: Fair Special Tests: Mobility Limitations Standardized Measure [facility] AM-PAC 6 clicks Basic Mobility Inpatient Short Form: Raw Score: 18 standardized Score: 43.63 CMS Score: 46.58% [facility] Modifier: CK Informed Consent/Education: Patient instructed in purpose of PT consult and plan of care. Assessment: Patient is a 63-year-old male admitted with influenza A, atrial fibrillation in setting of Anemia, encephalopathy, paroxysmal atrial fibrillation, glaucoma. Patient presents with the following impairment level findings: Decreased static and dynamic standing balance, weakness with transfers and gait due to influenza A, requiring use of front wheel walker for transfers and gait mobility to prevent falls. Patient will benefit from short-term skilled therapy intervention proves strength and balance in order to return to community fci. Patient already has walker in home setting. Impairments are contributing to the following functional limitations: AMPAC score CMS Score: 46.58% Patient is assessed as a Moderate 27875 complexity based on the following: History: See above Examination: See above Presentation: Evolving Decision Making: AMPAC score CMS Score: 46.58% Goals: Goals X1 week 1. Supine-Sit: Independent 2. Sit-Supine: Independent 3. Sit-Stand: Independent 4. Stand-Sit: Independent 5. Bed-Chair: Supervision with FWW 6. Chair-Bed: Supervision with FWW 7. Gait: SBA with FW W 150ft 8. Stairs: Up/down 4 steps with railing, SBA Plan of Care/Treatment Plan: 1-2x/day, 7 days/week x 1 week. Plan of care has been reviewed with the INTERFACE ENGINEER providing the service under Physical Therapy direction. Initiate Physical Therapy intervention for strengthening, bed mobility, transfers, gait, stairs, balance training, use of assistive device. DISCHARGE RECOMMENDATIONS: Return to community correction with caregiver patient has all DME TREATMENT CODE/TIME: 25 minutes IE 10:40 AM G Codes in the area mobility of walking and moving around: current status [id number] []; projected status GP [id number]-[]. Discharge status (if discharging) GP [id number] CK based on AMPAC score CMS Score: 46.58% Ayde Deleon PT Disclaimer: This note was created using [employer] voice recognition software. It was reviewed for major content. However, there may be multiple small discrepancies and errors due to the voice recognition aspects of the software.
--- NOTE | 2018-09-19 10:51 | IN_ITS ---
Date of service: 09/19/18 Time of Service: 10:40 PT Notes Inpatient Physical Therapy Evaluation Date: 09/19/2018 Referring Doctor: Deepak Daugherty MD PT Orders: PT CONSULT: a Precautions: Fall precautions Patient Profile/Admitting Diagnosis: Patient is a 63-year-old male admitted with influenza A, atrial fibrillation PMHX: Anemia, encephalopathy, paroxysmal atrial fibrillation, glaucoma, hypercholesterolemia, alcohol abuse in the past, substance abuse in the past, tobacco abuse Social History/Home Situation: [facility] in [place] has caregivers that assist him in this setting, caregiver present in room at time of evaluation. Per caregiver baseline mobility independent gait without assistive device, independent with ADLs. Equipment Owned/DME: Cane, FWW, commode, Subjective: Patient is sitting in chair watching TV, eating, visiting with caregiver. Alert and oriented to place and situation and agreeable to PT consult. Objective: General Observation: Telemetry Mental Status: A and O times place, situation, name Pain: No complaints of pain Vital Signs: On room air O2 sats at rest 96%, with gait 94% Bed Mobility/Transfers: Sit to stand: Independent with FWW Stand to sit: Independent Gait: SBA with FWW 60 feet x2, slow steady step through gait pattern, decreased stride length, decreased calos. Patient without shortness of breath with exertion O2 sats remained 94% on room air. Patient returned to room and up in chair to finish a meal. Balance: Static Sitting: Normal Dynamic Sitting: Normal Static Standing: Fair Dynamic Standing: Fair Special Tests: Mobility Limitations Standardized Measure [facility] AM-PAC 6 clicks Basic Mobility Inpatient Short Form: Raw Score: 18 standardized Score: 43.63 CMS Score: 46.58% [facility] Modifier: CK Informed Consent/Education: Patient instructed in purpose of PT consult and plan of care. Assessment: Patient is a 63-year-old male admitted with influenza A, atrial fibrillation in setting of Anemia, encephalopathy, paroxysmal atrial fibrillation, glaucoma. Patient presents with the following impairment level findings: Decreased static and dynamic standing balance, weakness with transfers and gait due to influenza A, requiring use of front wheel walker for transfers and gait mobility to prevent falls. Patient will benefit from short-term skilled therapy intervention proves strength and balance in order to [facility] to [facility]. Patient already has walker in home setting. Impairments are contributing to the following functional limitations: AMPAC score CMS Score: 46.58% Patient is assessed as a Moderate 68401 complexity based on the following: History: See above Examination: See above Presentation: Evolving Decision Making: AMPAC score CMS Score: 46.58% Goals: Goals X1 week 1. Supine-Sit: Independent 2. Sit-Supine: Independent 3. Sit-Stand: Independent 4. Stand-Sit: Independent 5. Bed-Chair: Supervision with FWW 6. Chair-Bed: Supervision with FWW 7. Gait: SBA with FW W 150ft 8. Stairs: Up/down 4 steps with railing, SBA Plan of Care/Treatment Plan: 1-2x/day, 7 days/week x 1 week. Plan of care has been reviewed with the SUPERVISOR AIR CONDITIONING INSTALLER providing the service under Physical Therapy direction. Initiate Physical Therapy intervention for strengthening, bed mobility, transfers, gait, stairs, balance training, use of assistive device. DISCHARGE RECOMMENDATIONS: Return to community intermediate with caregiver patient has all DME TREATMENT CODE/TIME: 25 minutes IE 10:40 AM G Codes in the area mobility of walking and moving around: current status [id number] []; projected status GP [id number]-[]. Discharge status (if discharging) GP [id number] CK based on AMPAC score CMS Score: 46.58% Ayde Deleon PT Disclaimer: This note was created using [employer] voice recognition software. It was reviewed for major content. However, there may be multiple small discrepancies and errors due to the voice recognition aspects of the software.
--- NOTE | 2018-09-19 12:28 | W.PM.PROGNOT ---
Date of Service Date of service: 09/19/18 Time of Service: 12:29 Assessment and Plan (1) Influenza A: Current visit: Yes Status: Acute Received 5 day course of Oseltamivir. Patient remains afebrile. CXR, urinalysis checked and negative. Blood Cultures all negative - positive in only one set for Staph Epidermidis, likely contaminant. Given leukocytosis repeat CXR was obtained and again negative. Recheck urinalysis now. Remains afebrile - elevated WBC may be on basis of steroid use. (2) Elevated troponin: Current visit: Yes Status: Acute In setting of Influenza infection and Afib with RVR. Original EKG with nonspecific ST changes, ECHO with LVEF 55-60%, wall motion not commented on. Likely demand in patient with underlying CAD. Initially maintained on therapeutic anticoagulation for 48 hours, now with medications optimized - Continue high potency statin, BB, and daily . Elevated troponin down trended, last checked at 0.28 from a peak of just over 1. Patient will likely benefit from stress testing, but is stable enough to perform as outpatient. Case was discussed with Cardiology at [facility] who agrees with plan. (3) Rapid atrial fibrillation: Current visit: Yes Status: Resolved Converted to sinus - had intermittently gone in and out of AFib, which may have been related to down titration of beta-alexsander therapy from every 6 hour dosing to every 12. Current heart rate well controlled on long-acting metoprolol and Cardizem. Consider titration as outpatient to discontinue one agent or the other long-term. HgA1c 7.3%. CHADSVASc score calculated at 2 based on age of 63 and new diagnosis of DM - continue anticoagulation with Apixaban. (4) Anemia: Current visit: Yes Status: Chronic Initial presenting hemoglobin of 14, values have dropped down to the 10-11 range previously, down to 9.6. Mr. Mccain may benefit from lifelong anticoagulation given recurrence of AFib with a CHADSVASc score of 2, if tolerated. Current anemia is normocytic, with studies indicating anemia of chronic disease. Stool for occult blood negative checked and negative. (5) Tobacco abuse: Current visit: Yes Status: Chronic Noted. Continue NRT in the form of nicotrol. (6) Encephalopathy chronic: Current visit: Yes Status: Chronic Wernicke's encephalopathy suspected, with potential acute delirium in setting of infection and hospitalization. Confusion is apparently not patient's baseline. No acute CVA on MRI/MRA. Appears back to baseline. (7) Hyponatremia: Current visit: Yes Status: Acute Vastly improved from initial value with Lasix - likely secondary to volume overload. Currently remains resolved. (8) Diabetes mellitus: Current visit: Yes Status: Chronic Diagnosed based on HgA1C of 7.3%. Current elevation in setting of initial illness, now steroid use. May benefit from addition of metformin at time of discharge. (9) DVT prophylaxis: Current visit: Yes Status: Acute Currently on therapeutic Apixaban. PPI therapy added for GI prophylaxis as well. Subjective Interval history since last seen: This is a 63-year-old man with a prior medical history significant for paroxysmal Afib as well as daily tobacco use, admitted from [facility] emergency department on 09/11 with a diagnosis of influenza. Mr. Mccain has a past medical history significant for paroxysmal atrial fibrillation, dyslipidemia, daily tobacco abuse, and a history of drug and alcohol abuse in remission. [facility] a [facility] in [place]. The patient was noted to have of a fever of 101 on the day prior to his admission, with a worsening cough and reported weakness. His caregiver has been sick with pneumonia, and he had had sick contacts. In the emergency Department he was found to have a rapid heart rate in the 160's and in AFib. Rapid flu swab positive for influenza A. His troponin was elevated at 0.67, later trended to 1.09. His medical regimen was optimized for likely demand ischemia. The patient was confused previously, treated with a short course of low dose seroquel and continuation of treatment of his acute illness. He now appears to be at his baseline, with seroquel discontinued due to somnolence. His WBC has increased significantly on 09/18 and remains elevated, but he remains afebrile. Also with mild hypoxia yesterday prompting a CXR that appears without any acute pathology. He is currently on room air. No other events reported. Exam Narrative Exam Narrative: General: Patient appears comfortable, Awake and alert, NAD Neck: Supple CV: Regular, nontachycardic, S1S2, No rubs, murmurs, or gallops. Pulmonary: Clear to auscultation bilaterally with no further crackles. No wheezing or rhonchi. Decreased Breath sounds diffusely, improved since prior exam. Abdomen: + Bowel Sounds, soft, nontender, nondistended Vascular: No lower extremity edema Psych: Normal mood and affect. Objective Objective Clinical Data: Abnormal lab results 09/19/18 09/19/18 Range/Units 06:15 08:25 WBC 18.99 H (4.4-10.8) k/cumm RBC 3.40 L (4.50-6.00) m/cumm Hgb 9.6 L (13.5-17.5) g/dL Hct 30.6 L (40.0-50.0) % MCHC 31.4 L (32.0-36.0) g/dL RDW 14.6 H (11.8-14.1) % Plt Count 401 H (130-400) x1000/uL Absolute Neutrophils 14.60 H (1.2-6.7) k/cumm Absolute Monocytes 1.04 H (0.11-0.7) k/cumm BUN 33 H (7-18) mg/dL Glucose 308 H D (70-100) mg/dL Vital Signs Temperature 37.1 C 09/18/18 12:21 Temperature Source Temporal Artery Scan 09/18/18 12:21 Pulse 60 09/19/18 10:00 Pulse Rhythm Regular 09/19/18 10:05 Pulse 62 09/19/18 10:00 Respiratory Rate 20 09/19/18 10:00 Respiratory Effort Non-Labored 09/19/18 10:05 Respiratory Depth Normal 09/19/18 10:05 Respiratory Pattern Normal 09/19/18 10:05 Blood Pressure 129/58 L 09/19/18 10:00 Blood Pressure Mean 75 09/19/18 10:00 Blood Pressure Position Supine 09/18/18 09:25 Pulse Oximetry 94 L 09/19/18 10:05 Oxygen Delivery Method Room Air 09/19/18 10:05 Oxygen Flow Rate 0 09/19/18 10:05 Pain Level 4 09/18/18 13:28 Comment 09/18/18 12:21 Intake & Output 09/18/18 09/19/18 09/19/18 23:59 11:59 23:59 Intake Total 480 / 900 50 / 50 Output Total 200 / 700 775 / 775 Balance 280 / 200 -725 / -725 Weight 66.3 kg Intake: IV 50 / 50 Oral 480 / 880 Output: Urine 200 / 700 775 / 775 Other: Urine Color Yellow Light Darcy Urine Appearance Clear Cloudy Urine Odor Strong Normal Stool Occult Blood Negative Stool Size Large Stool Characteristics Soft Formed Brown Voiding Methods Urinal Urinal Laboratory Results WBC 18.99 k/cumm (4.4-10.8) H 09/19/18 06:15 RBC 3.40 m/cumm (4.50-6.00) L 09/19/18 06:15 Hgb 9.6 g/dL (13.5-17.5) L 09/19/18 06:15 Hct 30.6 % (40.0-50.0) L 09/19/18 06:15 MCV 90.0 fL (80-95) 09/19/18 06:15 MCH 28.2 pg (27.0-33.0) 09/19/18 06:15 MCHC 31.4 g/dL (32.0-36.0) L 09/19/18 06:15 RDW 14.6 % (11.8-14.1) H 09/19/18 06:15 Plt Count 401 x1000/uL (130-400) H 09/19/18 06:15 MPV 11.0 fL (8.0-11.0) 09/19/18 06:15 Immature Gran % 1.5 09/19/18 06:15 Neutrophils % 76.9 09/19/18 06:15 Lymphocytes % 16.0 09/19/18 06:15 Monocytes % 5.5 09/19/18 06:15 Eosinophils % 0.0 09/19/18 06:15 Basophils % 0.1 09/19/18 06:15 Absolute Neutrophils 14.60 k/cumm (1.2-6.7) H 09/19/18 06:15 Absolute Lymphocytes 3.04 k/cumm (1.2-3.4) 09/19/18 06:15 Absolute Monocytes 1.04 k/cumm (0.11-0.7) H 09/19/18 06:15 Absolute Eosinophils 0.00 k/cumm (0.0-0.7) 09/19/18 06:15 Absolute Basophils 0.02 k/cumm (0.0-0.2) 09/19/18 06:15 Differential Comment Manual differential 09/18/18 06:45 Atypical Lymphocytes 3 09/18/18 06:45 RBC Morphology See below 09/18/18 06:45 Polychromasia Present 09/18/18 06:45 Poikilocytosis 1+ 09/17/18 06:35 Basophilic Stippling Present 09/18/18 06:45 APTT 27.3 sec (21.0-31.4) 09/13/18 06:30 Sodium 141 mmol/L (136-145) 09/19/18 08:25 Potassium 4.4 mmol/L (3.5-5.1) 09/19/18 08:25 Chloride 104 mmol/L (98-107) 09/19/18 08:25 Carbon Dioxide 29.1 mmol/L (21.0-32.0) 09/19/18 08:25 Anion Gap 7.9 mmol/L (3-11) 09/19/18 08:25 BUN 33 mg/dL (7-18) H 09/19/18 08:25 Creatinine 1.12 mg/dL (0.70-1.30) 09/19/18 08:25 Estimated GFR/1.73 m2 >= 60.00 (mL/min/1.73m2) 09/19/18 08:25 Glucose 308 mg/dL (70-100) H D 09/19/18 08:25 Hemoglobin A1c 7.3 % (4.5-6.2) H 09/18/18 06:45 Serum Osmolality 275 mOsm/kg (275-295) 09/13/18 06:50 Lactate 1.5 mmol/L (0.6-1.4) H 09/12/18 08:15 Calcium 8.8 mg/dL (8.5-10.1) 09/19/18 08:25 Magnesium 1.8 mg/dL (1.8-2.4) 09/19/18 08:25 Iron 29 ug/dL (50-175) L 09/17/18 06:35 TIBC 204 ug/dL (250-450) L 09/17/18 06:35 Transferrin % Sat 14 % (20-55) L 09/17/18 06:35 Ferritin 426 ng/mL (8-388) H 09/17/18 06:35 Total Bilirubin 0.4 mg/dL (0.2-1.0) 09/12/18 06:45 AST 172 U/L (15-37) H 09/12/18 06:45 ALT 36 U/L (12-78) 09/12/18 06:45 Alkaline Phosphatase 76 U/L (46-116) 09/12/18 06:45 Troponin I 0.28 ng/mL (0.00-0.06) H 09/13/18 06:30 NT-Pro-B Natriuret Pep 3909 pg/mL (-299) H 09/12/18 12:05 Total Protein 7.3 g/dL (6.4-8.2) 09/12/18 06:45 Albumin 2.8 g/dL (3.4-5.0) L 09/12/18 06:45 Triglycerides 64 mg/dL (30-150) 09/12/18 06:45 Total Cholesterol 96 mg/dL (50-200) 09/12/18 06:45 LDL Cholesterol Direct 49 mg/dL (<100) 09/12/18 06:45 HDL Cholesterol 38 mg/dL (40-60) L 09/12/18 06:45 Vitamin B12 401 pg/mL (193-986) 09/17/18 06:35 Folate 14.2 ng/mL (8.6-20.0) 09/17/18 06:35 TSH 1.09 uIU/mL (0.358-3.74) 09/12/18 06:45 Free T4 1.19 ng/dL (0.76-1.46) 09/12/18 06:45 Urine Color Yellow (Yellow) 09/14/18 13:15 Urine Clarity Clear 09/14/18 13:15 Urine pH 6.0 (5-8) 09/14/18 13:15 Ur Specific [place] 1.010 (1.005-1.025) 09/14/18 13:15 Urine Protein 30 mg/dL (Negative) H 09/14/18 13:15 Urine Ketones Negative mg/dL (Negative) 09/14/18 13:15 Urine Blood Moderate (Negative) H 09/14/18 13:15 Urine Nitrite Negative (Negative) 09/14/18 13:15 Urine Bilirubin Negative (Negative) 09/14/18 13:15 Urine Urobilinogen 0.2 EU/dL (Up TO 0.2) 09/14/18 13:15 Ur Leukocyte Esterase Negative (Negative) 09/14/18 13:15 Urine RBC 3-5 (0-2) H 09/14/18 13:15 Urine WBC 0-2 HPF (0-5) 09/14/18 13:15 Ur Epithelial Cells Rare HPF (Negative) 09/14/18 13:15 Urine Crystals Negative HPF (Negative) 09/14/18 13:15 Urine Bacteria Negative HPF (Negative) 09/14/18 13:15 Urine Casts Negative LPF (Negative) 09/14/18 13:15 Urine Mucus Trace (Negative) 09/14/18 13:15 Urine Other Negative (Negative) 09/12/18 11:58 Ur Culture Indicated? No 09/14/18 13:15 Urine Osmolality 250 mosm/Kg (150-1150) 09/13/18 13:30 Ur Random Sodium 59 mmol/L 09/13/18 13:30 Urine Glucose Negative mg/dL (Negative) 09/14/18 13:15
[2018-09-19] MEDS: Magnesium Chloride 64 MG TABCR PO ×2 (12:54→22:00)
[2018-09-19 13:27] LABS: Bilirubin Negative (Negative); Blood Trace-intact (Negative); Clarity Clear; Glucose Negative (Negative); Ketones Negative (Negative); Leukocyte Esterase Negative (Negative); Nitrite Negative (Negative); Specific Gravity 1.025 (1.005-1.025); Urobilinogen 0.2 EU/dL (Up TO 0.2); pH 6.5 (5-8)
[2018-09-19 13:33] LABS: Bacteria Negative HPF (Negative); C & S Indicated? No; Casts Negative LPF (Negative); Crystals Negative HPF (Negative); Epithelial Cells Rare HPF (Negative); Mucus Trace (Negative); WBC 0-2 HPF (0-5)
--- NOTE | 2018-09-19 14:51 | PT.INTREAT ---
Date of service: 09/19/18 Time of Service: 14:51 PT Notes Inpatient Physical Therapy Treatment Note Date: 09/19/18 PRECAUTIONS: Fall precautions SUBJECTIVE: OBJECTIVE: Supine-sit: SBA Sit-supine: SBA Sit-stand: SBA Stand-sit: SBA GAIT Assistive Device: FWW Weight bearing: Full Assist: CGA Distance: Walking in place for 1 min and static standing until fatigued. THEREX: Pt completed UE and LE ther ex as per flow sheet. ASSESSMENT: Pt was somewhat confused during our session today and was not very motivated to complete his session today. PLAN: Cont as per PT POC. TREATMENT CODE/TIME: 1:40-2 (20) TP
[2018-09-19] MEDS: Insulin Aspart 300 UNITS/3 ML PEN SC ×2 (17:27→22:00)
--- NOTE | 2018-09-19 18:55 | NUR.NOTE ---
Patient transferred to the unit cfrom the ICU. Pt handed over by JOELLE Singh. Hisoty of being homeless, confused was admitted to the ICU for Influenza, Rapid AFIB, Elevated Troponins. Pt is conscious, but tends to sundown with confusion. He is visually impaired, lungs clear, but has fine crackles when ascultated. Abdomen soft and non-tender, no abnormalities to the extremities. Patient has a midline to the left upper arm and a large bruise to the forearm of the same arm.
[2018-09-19] MEDS: Atorvastatin 20 MG TAB PO (20:03)
[2018-09-20 03:30] VITALS: BP 141/71; PULSE 59; RESP 17; TEMP 36.7; O2SAT 91
[2018-09-20 03:40] VITALS: O2SAT 91
[2018-09-20 04:00] VITALS: O2SAT 97
[2018-09-20 07:23] VITALS: BP 127/71; PULSE 66; RESP 18; TEMP 36.6; O2SAT 95
[2018-09-20 07:23] LABS: Abs Immature Grans 0.36 k/cumm (0.0-0.09); HCT 31.3 % (40.0-50.0); Mean Corp. HGB Concentration 31.9 g/dL (32.0-36.0); Mean Corpuscular Hemoglobin 28.7 pg (27.0-33.0); Mean Corpuscular Volume 89.9 fL (80-95); Mean Platelet Volume 10.1 fL (8.0-11.0); RBC 3.48 m/cumm (4.50-6.00); RBC Distribution Width 14.4 % (11.8-14.1); White Blood Cell Count 21.69 k/cumm (4.4-10.8)
[2018-09-20 07:25] LABS: Absolute Lymphocyte Count 4.99 k/cumm (1.2-3.4)
[2018-09-20 07:44] LABS: Anion Gap 7.2 mmol/L (3-11); BUN 37 mg/dL (7-18); CO2 29.8 mmol/L (21.0-32.0); Calcium 8.7 mg/dL (8.5-10.1); Chloride 106 mmol/L (98-107); Glucose 175 mg/dL (70-100); Magnesium 1.7 mg/dL (1.8-2.4); Potassium 4.1 mmol/L (3.5-5.1); Sodium 143 mmol/L (136-145)
[2018-09-20 07:59] LABS: Absolute Neutrophil Count 14.75 k/cumm (1.2-6.7)
[2018-09-20 08:00] LABS: Absolute Monocyte Count 1.52 k/cumm (0.11-0.7); Diff Comment Manual Differential; Nucleated RBC 1 /100WBC; Polychromasia Present
[2018-09-20 08:01] LABS: Platelet Count 436 x1000/uL (130-400)
[2018-09-20 08:25] VITALS: O2SAT 93
[2018-09-20] MEDS: Timolol 0.5% 5 ML BTL OP (08:31)
[2018-09-20] MEDS: Normal Saline Flush 10 ML SYR IVP (08:32)
[2018-09-20] MEDS: Pantoprazole 40 MG VIAL IVP (08:32)
[2018-09-20] MEDS: Aspirin 81 MG CHEW PO (08:34)
[2018-09-20] MEDS: Metoprolol CR 100 MG TABCR PO (08:34)
[2018-09-20] MEDS: Thiamine 100 MG TAB PO (08:34)
[2018-09-20] MEDS: predniSONE 20 MG TAB PO (08:34)
[2018-09-20] MEDS: Gabapentin 100 MG CAP 200 MG PO ×2 (08:35→14:21)
[2018-09-20] MEDS: Apixaban 5 MG TAB PO (08:35)
[2018-09-20] MEDS: Magnesium Oxide 400 MG TAB PO (08:38)
--- NOTE | 2018-09-20 10:58 | PT.INTREAT ---
Date of service: 09/20/18 Time of Service: 10:59 PT Notes Inpatient Physical Therapy Treatment Note Date: 09/20/18 PRECAUTIONS: Fall SUBJECTIVE: Ti is agreeable to participating in PT. OBJECTIVE: PAIN: No c/o pain BED MOBILITY/TRANSFERS Supine-sit: I Sit-stand: S Stand-sit: S GAIT Assistive Device: FWW Weight bearing: Full Assist: SBA Distance: 150' Deviation: Patient requires significant cueing for direction, slow pacing. THEREX: Patient refused due to fatigue. ASSESSMENT: Patient tolerated session well without complaint. He requires significant time and instruction for activity initiation as well as for direction with gait training. He would benefit from continued gait training and strengthening for improved mobility and endurance. PLAN: Continue with PT's POC TREATMENT CODE/TIME: 25 minutes; TAx2
[2018-09-20] MEDS: Magnesium Chloride 64 MG TABCR PO (11:12)
[2018-09-20 11:35] VITALS: BP 152/81; PULSE 65; RESP 19; TEMP 36.3; O2SAT 92
[2018-09-20] MEDS: Insulin Aspart 300 UNITS/3 ML PEN SC (12:35)
--- NOTE | 2018-09-20 14:41 | PDOC.CMDIS ---
LACE Index Scoring Tool - Questions: Length of Stay (in days): 7 - 13 Acuity (Admit via E.D.?): Yes Comorbidities: Diabetes w/o Complication E.D. Visits: 1 - Answers: Total Score: 10 Risk of Readmission: High Risk Care Management Discharge Reason for Hospitalization: Influenza/Rapid AFIB, elevated troponins Discharge Plan: Ti will return home with his caregiver, Mary. He will resume outpatient supports services, follow up with his PCP Blanca Harrison MD on 09/24/18@6310. He will also have a ziopatch placed for continued cardiac monitoring, new prescription for Eliquis for anticoagulation, and have an outpatient follow up stress test. He will transport home via private vehicle with Mary. Patient/Family Education Needs: Review of discharge instructions, discuss self care needs upon discharge.
--- NOTE | 2018-09-20 14:51 | CMDISCH_ITS ---
LACE Index Scoring Tool - Questions: Length of Stay (in days): 7 - 13 Acuity (Admit via E.D.?): Yes Comorbidities: Diabetes w/o Complication E.D. Visits: 1 - Answers: Total Score: 10 Risk of Readmission: High Risk Care Management Discharge Reason for Hospitalization: Influenza/Rapid AFIB, elevated troponins Discharge Plan: Ti will return home with his caregiver, Mary. He will resume outpatient supports services, follow up with his PCP Blanca Harrison MD on 09/24/18@2254. He will also have a ziopatch placed for continued cardiac monitoring, new prescription for Eliquis for anticoagulation, and have an outpatient follow up stress test. He will transport home via private vehicle with Mary. Patient/Family Education Needs: Review of discharge instructions, discuss self care needs upon discharge.
--- NOTE | 2018-09-20 14:55 | PT.INDS ---
Date of service: 09/20/18 Time of Service: 14:55 PT Notes Inpatient Physical Therapy Discharge Summary Date: 09/20/18 Dates of Service: 09/19/18-09/20/18 SUBJECTIVE: NT OBJECTIVE: 09/19/18-09/20/18 Bed Mobility/Transfers: Supine-sit: independent Sit to stand: Independent/supervision with FWW Stand to sit: Independent/supervision Gait: SBA with FWW 150ft Balance: Static Sitting: Normal Dynamic Sitting: Normal Static Standing: Fair Dynamic Standing: Fair Assessment: Patient is a 63-year-old male admitted with influenza A, atrial fibrillation in setting of Anemia, encephalopathy, paroxysmal atrial fibrillation, glaucoma. Patient was seen for 3 PT visits. Progressed from SBA gait with FWW 60ftx2 to SBA gait with FWW 150ft. Pt is being discharged to snf today, discharge PT services. Pt has FWW in home setting. Goals: Goals X1 week 1. Supine-Sit: Independent 2. Sit-Supine: Independent 3. Sit-Stand: Independent 4. Stand-Sit: Independent 5. Bed-Chair: Supervision with FWW 6. Chair-Bed: Supervision with FWW 7. Gait: SBA with FW W 150ft 8. Stairs: Up/down 4 steps with railing, SBA Pt met goals # 1, 3, 4, 5, 6, 7 DISCHARGE RECOMMENDATIONS: Return to community correction with caregiver patient has all DME G Codes in the area mobility of walking and moving around: projected status GP [id number]. Discharge status (if discharging) GP [id number] CK Ayde Deleon PT
--- NOTE | 2018-09-20 14:58 | INDS_ITS ---
Date of service: 09/20/18 Time of Service: 14:55 PT Notes Inpatient Physical Therapy Discharge Summary Date: 09/20/18 Dates of Service: 09/19/18-09/20/18 SUBJECTIVE: NT OBJECTIVE: 09/19/18-09/20/18 Bed Mobility/Transfers: Supine-sit: independent Sit to stand: Independent/supervision with FWW Stand to sit: Independent/supervision Gait: SBA with FWW 150ft Balance: Static Sitting: Normal Dynamic Sitting: Normal Static Standing: Fair Dynamic Standing: Fair Assessment: Patient is a 63-year-old male admitted with influenza A, atrial fibrillation in setting of Anemia, encephalopathy, paroxysmal atrial fibrillation, glaucoma. Patient was seen for 3 PT visits. Progressed from SBA gait with FWW 60ftx2 to SBA gait with FWW 150ft. Pt is being discharged to half-way today, discharge PT services. Pt has FWW in home setting. Goals: Goals X1 week 1. Supine-Sit: Independent 2. Sit-Supine: Independent 3. Sit-Stand: Independent 4. Stand-Sit: Independent 5. Bed-Chair: Supervision with FWW 6. Chair-Bed: Supervision with FWW 7. Gait: SBA with FW W 150ft 8. Stairs: Up/down 4 steps with railing, SBA Pt met goals # 1, 3, 4, 5, 6, 7 DISCHARGE RECOMMENDATIONS: Return to community assisted with caregiver patient has all DME G Codes in the area mobility of walking and moving around: projected status GP [id number]. Discharge status (if discharging) GP [id number] CK Ayde Deleon PT
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
--- NOTE | 2018-10-01 15:41 | ZIOP_ITS ---
DATE OF DICTATION: October 01, 2018 STUDY INDICATION: Paroxysmal atrial fibrillation. REQUESTING PROVIDER: Mindi Prescott FINDINGS: The patient was monitored for 3 days. Average heart rate 83 bpm; range 57 to 242 bpm. The patient was in atrial fibrillation 3% of the time, average heart rate 168 bpm, range 102 to 242 bpm. The longest episode lasted 24 minutes and 18 seconds. There was one episode of ventricular tachycardia likely atrial fibrillation with aberrant conduction; average heart rate of 200 bpm. There were no pauses greater than 3 seconds. There was no higher degree heart block. There were no patient events. FINAL INTERPRETATION: Paroxysmal atrial fibrillation with rapid ventricular response, asymptomatic.
== END 2018-09-20 16:32 | disposition home or self-care (01) | DRG 193 ==
LOC: ER 21:13 → ICU 09-12 07:17 → MS 09-20 12:48 → ICU 09-24 11:05
PROVIDERS: Internal Medicine; Admitting Provider Family Medicine; Emergency Provider Emergency Medicine; PCP Family Medicine; Visit Provider Internal Medicine
DX: J10.1 Influenza due to other identified influenza virus with other respiratory manifestations (principal); I21.A1 Myocardial infarction type 2; I47.2 Ventricular tachycardia; G93.49 Other encephalopathy; E87.1 Hypo-osmolality and hyponatremia; I48.0 Paroxysmal atrial fibrillation; F17.210 Nicotine dependence, cigarettes, uncomplicated; D72.829 Elevated white blood cell count, unspecified; R09.02 Hypoxemia; R41.0 Disorientation, unspecified; I25.10 Atherosclerotic heart disease of native coronary artery without angina pectoris; E11.9 Type 2 diabetes mellitus without complications; D64.9 Anemia, unspecified; E83.42 Hypomagnesemia; Z91.19 Patient's noncompliance with other medical treatment and regimen
CPT/HCPCS: 36415; 36569; 36592; 70544; 80048; 80053; 80061; 83721; 83935; 87040; 87077; 87449; 93005; 93225; 93306; 94640; 96361; 96365; 96366; 96375; 96376; 97110; 97162; 97530; 99223; 99232; 99233; 99239; 99291; 70551; 71046; 81003; 81015; 82270; 82607; 82728; 82746; 83036; 83540; 83550; 83605; 83735; 83880; 83930; 84300; 84439; 84443; 84484; 85025; 85730; 87186; 93010; 93880; 99219; J1650; J1941; J2060; J2930; J3475; J3490; J7512; J7620

== ENCOUNTER 2018-10-01 15:26 | Outpatient (CLI) | payer MEDICARE, MEDICAID, SELFPAY | END 2018-10-01 15:46 | PROVIDERS: PCP Family Medicine; Referring Provider Internal Medicine; Visit Provider Student in an Organized Health Care Education/Training Program | DX: I48.0 Paroxysmal atrial fibrillation (principal); I47.2 Ventricular tachycardia | CPT/HCPCS: 0298T ==

== ENCOUNTER → 2019-02-21 10:02 | Outpatient (BNVA) | payer MEDICARE, MEDICAID, SELFPAY | PROVIDERS: PCP Family Medicine; Referring Provider Family Medicine; Visit Provider Surgery | DX: R19.4 Change in bowel habit (principal); I48.0 Paroxysmal atrial fibrillation; Z80.0 Family history of malignant neoplasm of digestive organs; Z79.01 Long term (current) use of anticoagulants; E11.9 Type 2 diabetes mellitus without complications | CPT/HCPCS: 99203; 99214 ==

== ENCOUNTER 2019-02-27 13:58 | Emergency (ER) | payer MEDICARE, MEDICAID, SELFPAY ==
[2019-02-27 14:05] VITALS: BP 119/93; PULSE 72; RESP 16; TEMP 36.6; O2SAT 95
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
[2019-02-27] MEDS: Normal Saline 1,000 ML 1000 ML IV (14:58)
[2019-02-27 15:30] LABS: Abs Immature Grans 0.02 k/cumm (0.0-0.09); Absolute Basophil Count 0.03 k/cumm (0.0-0.2); Absolute Eosinophil Count 0.33 k/cumm (0.0-0.7); Absolute Lymphocyte Count 3.08 k/cumm (1.2-3.4); Absolute Monocyte Count 0.98 k/cumm (0.11-0.7); Absolute Neutrophil Count 6.28 k/cumm (1.2-6.7); Basophils % 0.3; Eosinophils % 3.1; HCT 40.6 % (40.0-50.0); HGB 13.6 g/dL (13.5-17.5); Immature Grans % 0.2; Lymphocytes % 28.7; Mean Corp. HGB Concentration 33.5 g/dL (32.0-36.0); Mean Corpuscular Volume 89.6 fL (80-95); Mean Platelet Volume 10.8 fL (8.0-11.0); Monocytes % 9.1; Neutrophils % 58.6; Platelet Count 273 x1000/uL (130-400); RBC 4.53 m/cumm (4.50-6.00); RBC Distribution Width 14.9 % (11.8-14.1); White Blood Cell Count 10.72 k/cumm (4.4-10.8)
[2019-02-27 15:32] LABS: ALT 17 U/L (12-78); AST 16 U/L (15-37); Albumin 3.7 g/dL (3.4-5.0); Alkaline Phosphatase 76 U/L (46-116); BUN 23 mg/dL (7-18); Bilirubin, Total 0.4 mg/dL (0.2-1.0); CREATININE 0.93 mg/dL (0.70-1.30); Calcium 9.1 mg/dL (8.5-10.1); Chloride 102 mmol/L (98-107); Glucose 136 mg/dL (70-100); Magnesium 1.6 mg/dL (1.8-2.4); Potassium 4.4 mmol/L (3.5-5.1); Sodium 139 mmol/L (136-145); Total Protein 7.6 g/dL (6.4-8.2)
[2019-02-27 16:03] VITALS: RESP 16
[2019-02-27 16:21] LABS: Bilirubin Negative (Negative); Blood Trace-intact (Negative); Clarity Clear; Glucose Negative (Negative); Ketones Negative (Negative); Leukocyte Esterase Negative (Negative); Nitrite Negative (Negative); Urobilinogen 0.2 EU/dL (Up TO 0.2)
[2019-02-27 16:34] LABS: Bacteria Rare HPF (Negative); C & S Indicated? No; Casts Negative LPF (Negative); Crystals Negative HPF (Negative); Epithelial Cells Negative HPF (Negative); Mucus Negative (Negative); Other Cells Negative (Negative); RBC 0-2 (0-2); WBC Negative HPF (0-5)
--- NOTE | 2019-03-01 18:28 | PDOC.ERCMPRO ---
- If Service Date Differs Date of service: 03/01/19 Time of Service: 18:28 Care Management Progress Note CM contacted Ti Mccain caregiver Mary at the request of after he was in the ED for chronic loose stools. I spoke with the caregiver Mary who reports that she is feeling overwhelmed caring for Ti. She is a private longterm and is paid to care for Ti. She received him through [facility] which is a community agency to place people that are difficult to place. She is trying to get him placed out of her home due to his behaviors including urinating and incontinence all over the house. She is disappointed that the community agency was not honest with her about his behaviors. I offered services and extra support through home health and other community supports which she declines. Ti continues to have bowel movements however this is not new and she has not brought in a stool sample as requested. I requested that she contact the supportive employment case manager at [facility] who should be offering her more services in the community. She was not open to any other resources except having him leave her home. She states that he has not been able to get along with home health services and that is not an option for him. She has been following up with his PCP and with the agency. Mary is appreciate of someone to listen to her and allow her to process how she is feeling. She is going to contact [facility] and work with the international trade compliance manager.
--- NOTE | 2019-03-01 18:40 | CMPROGNOTE_ITS ---
- If Service Date Differs Date of service: 03/01/19 Time of Service: 18:28 Care Management Progress Note CM contacted Ti Mccain caregiver Mary at the request of after he was in the ED for chronic loose stools. I spoke with the caregiver Mary who reports that she is feeling overwhelmed caring for Ti. She is a private skilled nursing and is paid to care for Ti. She received him through [facility] which is a community agency to place people that are difficult to place. She is trying to get him placed out of her home due to his behaviors including urinating and incontinence all over the house. She is disappointed that the community agency was not honest with her about his behaviors. I offered services and extra support through home health and other community supports which she declines. Ti continues to have bowel movements however this is not new and she has not brought in a stool sample as requested. I requested that she contact the correctional case records supervisor at [facility] who should be offering her more services in the community. She was not open to any other resources except having him leave her home. She states that he has not been able to get along with home health services and that is not an option for him. She has been following up with his PCP and with the agency. Mary is appreciate of someone to listen to her and allow her to process how she is feeling. She is going to contact [facility] and work with the manager assisted living.
== END 2019-02-27 17:21 | disposition home or self-care (01) ==
PROVIDERS: Physician Assistant; Emergency Provider Student in an Organized Health Care Education/Training Program; PCP Family Medicine
DX: R19.7 Diarrhea, unspecified (principal); R41.0 Disorientation, unspecified; I48.0 Paroxysmal atrial fibrillation; G30.0 Alzheimer's disease with early onset; E11.9 Type 2 diabetes mellitus without complications; Z53.29 Procedure and treatment not carried out because of patient's decision for other reasons
CPT/HCPCS: 36415; 80053; 96360; 99283; 81003; 81015; 83735; 85025